=== PATIENT | male | born 1955 | race Caucasian/White ===

== ENCOUNTER 2024-01-10 19:06 | Emergency (ER) | payer MEDICARE, SELFPAY ==
[2024-01-10 19:06] VITALS: BMI 37.6
[2024-01-10 19:09] VITALS: BP 137/85
[2024-01-10 19:24] LABS: % Basophils 0.6 % (0-2); % Eosinophils 1.6 % (0-6); % Immature Granulocytes 0.2 % (0-0.5); % Monocytes 9.6 % (1.7-9.3); Absolute Eosinophils 0.1 10^3/uL (0-0.7); Absolute Monocytes 0.6 10^3/uL (0.1-0.6); Absolute Neutrophils 3.5 10^3/uL (1.4-6.5); Hematocrit 40.1 % (39.0-52.0); Hemoglobin 14.2 g/dL (13.0-18.0); Mean Corp Hgb Conc. 35.4 g/dL (33.0-37.0); Mean Corpuscular Hgb 30.3 pg (27.0-31.0); Mean Corpuscular Volume 85.7 fL (80.0-94.0); Mean Platelet Volume 8.9 fL (7.4-10.4); Nucleated Red Blood Cells % 0 % (-); Platelet Count 242 10^3/uL (130-400); Red Blood Cell Count 4.68 10^6/uL (4.70-6.10); Red Cell Dist. Width 13.6 % (11.5-14.5); White Blood Cell Count 6.3 10^3/uL (4.8-10.8)
[2024-01-10 19:40] LABS: ALT (SGPT) 18 U/L (0-50); AST (SGOT) 24 U/L (17-59); Alkaline Phosphatase 71 U/L (38-126); Blood Urea Nitrogen 12 mg/dl (9-20); Calcium 9.2 mg/dl (8.4-10.2); Carbon Dioxide 25 mmol/L (22-30); Chloride 108 mmol/L (98-107); Glucose 94 mg/dl (70-99); Potassium 4.1 mmol/L (3.5-5.1); Sodium 141 mmol/L (135-145); Total Bilirubin 0.6 mg/dl (0.2-1.3); Total Protein 6.5 g/dl (6.3-8.2); eGFR > 60.00
[2024-01-10 19:50] LABS: Troponin I < 0.012 ng/ml
[2024-01-10 20:57] VITALS: BP 145/99
[2024-01-10 21:00] VITALS: BP 132/102
--- NOTE | 2024-01-10 21:06 | ED.GENMED ---
History of Present Illness
General
Chief Complaint: Chest Pain
Source: patient
Exam Limitations: none
Time Seen by Provider: 01/10/24 20:35
Travel History
Have you had any contact with someone who has COVID-19?: No
Do you have any symptoms of coronavirus? Fever > 100 degrees, chills, cough, shortness of breath, sore throat, loss of taste or smell, muscle aches, or headache?: No
History of Present Illness
History of Present Illness:
This is a 68 year old male that comes in with c/o right sided headache and pain in the left chest. States that he has had this shooting pain that goes from the top of his ear to his eye and then a little in the right forehead. States that he has PT
today for his back. States that he started with pain under the left nipple and he had discomfort with deep breathing. State that he felt he better get this checked out. Denies any fever, chills, SOB, abd pain, nausea, vomiting, diarrhea, dizziness,
urinary burning.
Past History
Past History
ED Past Medical History: Cancer (Glioblastoma brain tumor), HTN, Hypercholesterolemia, NIDDM and Other (CT show a CVA but MRI is negative, Chronic left arm numbness since last May 2023)
ED Past Surgical History: Orthopedic (Left total knee arthroscopy)
Social History
Tobacco: Non-smoker
Alcohol: Occasional
Drug: None
Personal: Single
Living: alone
Family History
Family History: Other (Reviewed and noncontributory)
Review of Systems
Review of Systems
All Other Systems: ROS reviewed and negative except as documented in HPI and ROS
Constitutional: Reports no symptoms; Denies fever or chills
EENT: Reports no symptoms
Respiratory: Reports trouble breathing; Denies cough
Cardiac: Reports chest pain (Left sided chest )
ABD/GI: Reports no symptoms; Denies abdominal pain, nausea, vomiting or diarrhea
: Reports no symptoms; Denies dysuria, frequency or urgency
Musculoskeletal: Reports no symptoms
Skin: Reports no symptoms
Neurological: Reports headache; Denies dizzy
Psychiatric: Reports no symptoms
Phy Exam
General Physical Exam
General Presentation: well appearing and no apparent distress
General age: appears stated age
General Skin: warm and dry
General Habitus: normal
General Mental: alert
General Hydration: appears well hydrated
ENT Exam
ENT Exam: TM's normal, pharynx normal and neck supple
Eye Exam
Eye Exam: EOMI
Cardiovascular Exam
Cardiovascular Exam: regular rate/rhythm, no edema, no murmur and normal peripheral pulses
Pulmonary Exam
Pulmonary Exam: lungs clear, no respiratory distress, no rales, chest non tender, no crackles, no rhonchi, no wheezing and no cough
Gastrointestinal Exam
Gastrointestinal Exam: normal bowel sounds, non tender, soft, no organomegaly, no pulsatile mass and non distended
Musculoskeletal Exam
Musculoskeletal Exam: full ROM, no edema and other (Grimacing with movement of left back pain)
Skin Exam
Skin Exam: normal color, warm/dry, no rash and no petechia
Psychiatric Exam
Psychiatric Exam: normal mood/affect
Scores
Heart Score for Chest Pain Patients
STEMI patient?: No
History: Slightly or Non-Suspicious
ECG: Normal
Age: >/= 65 years
Risk Factors: 1 or 2 Risk Factors
Troponin: </= Normal Limit
Heart Score for Chest Pain Patients: 3
Heart Score Risk: 2.5% MACE over next 6 weeks
Course
Orders/Labs/Results
Orders:
Orders
01/10/24 19:09
Electrocardiogram (*1) Urgent
Reason for Study: Chest Pain
EKG- Treatment ONCE
01/10/24 19:17
Complete Blood Count/With Diff Urgent
Comprehensive Metabolic Panel Urgent
Troponin I Urgent
01/10/24 20:52
CT Head W/o Iv Contrast Urgent
Comment: history of Gleoblastoma, removed
Reason For Exam: Right sided pain,
01/10/24 22:10
D-Dimer Urgent
Troponin I Urgent
01/10/24 22:55
CT Chest Pe Study Urgent
Comment: History of Brain CA
Reason For Exam: pain with deep breathing
Abnormal Lab Results
01/10/24 01/10/24
19:17 22:10
RBC 4.68 L 10^6/uL
(4.70-6.10)
Monocytes % 9.6 H %
(1.7-9.3)
D-Dimer 1.66 H ug/mlFEU
(0.00-0.50)
Chloride 108 H mmol/L
(98-107)
01/10/24 19:17
01/10/24 19:17
Chloride slightly elevated. Otherwise normal labs. Troponin <0.012
Vital Signs
Initial and Last Documented VS:
Initial Vital Signs
Temp Pulse Resp BP Pulse Ox
97.9 F 85 19 137/85 92
01/10/24 19:09 01/10/24 19:09 01/10/24 19:09 01/10/24 19:09 01/10/24 19:09
Last Documented Vital Signs
Temp Pulse Resp BP Pulse Ox
97.9 F 81 17 132/102 96
01/10/24 19:09 01/10/24 23:00 01/10/24 23:00 01/10/24 21:00 01/10/24 23:00
MDM/Problems Addressed
Differential Diagnosis Includes:
Musculoskeletal pain, Coronary syndrome
MDM/Problems Addressed:
This is a 68 year old male that comes in with c/o left sided chest pain under the nipple and a right sided headache.
Will get labs. CT head. D-dimer. If positive will get CT chest.
Back into see patient Reviewed all findings. Patient states that he is ready to go home and is half dressed. Patient to follow up with the family doctor. Return with any concerns.
Chronic conditions affecting care:
Chronic back pain
Chronic conditions affecting care: Cancer (Brain tumor)
Acute Exacerbation and/or Progression of Chronic Illness:
NA
*Radiology
Radiology exam reviewed: radiology read reviewed (ct HEAD NIGHT HAWK- No acute hemorrhage, herniation or hydrocephalus. Evidence of prior right MCA territory infarct, with associated encephalomalacia. NO calvarial fracture. The visualized paranasal
sinuses and mastoid air cells are clear. CTA chest- Moderate technical study, with motion ), all reviewed NAD by ED Provider (Ct cont- degradation. No central pulmonary embolism. No thoracic aortic aneurysm or acute aortic dissection. Bibasilar
atelectasis. Incidentals: Calcified coronary atherosclerosis. No acute osseous abnormality. No acute abnormality with in the visualized abdomen. No Thoracic lymphadenopathy or ) and other (Ct cont- or suspicious lymph nodes)
*Pulse Oximetry
Patient hypoxic: no
*EKG
Interpreted by ED Provider?: Yes
Heart Rate: 88
Rate: normal
Rhythm: sinus
[place]: left axis deviation
Interval: normal interval
QRS Pattern: normal QRS
Ischemia: no ischemia
*High [employer] Interpretation
Rate: normal
Heart Rate: 78
Rhythm: sinus
*Critical Care Note
Total Time (30-74mins, 75-104mins- exclusive of procedures): Not Applicable
ED Attending Note
-
Portions of this chart may have been created with voice recognition software.� Occasional wrong word or��sound alike� substitutions may have occurred due to the inherent limitations of voice recognition software.
Discharge Plan
Departure
Patient Disposition: Home (Routine Discharge)
Date of Disposition: 01/11/24
Time of Disposition: 00:31
Patient with high blood pressure during this ER visit?: Yes
Condition: Good
Covid-19: Not Applicable
Discharge Problem:
Headache, Musculoskeletal chest pain
Instructions: Headache, Adult ED, BLOOD PRESSURE, Musculoskeletal Pain
Prescriptions:
No Action
duloxetine 60 MG capsule,delayed release(DR/EC)
60 mg PO DAILY
losartan [Cozaar] 100 MG tablet
100 mg PO Daily Qty: 0 0RF
metformin 500 mg Tablet Extended Release 24hr
2,000 mg PO HS
levetiracetam 500 mg Tablet
500 mg PO BID
dexamethasone 2 mg Tablet
2 mg PO BID
rosuvastatin [Crestor] 20 mg Tablet
20 mg PO DAILY
quetiapine 50 mg Tablet
50 mg PO HS
Jardiance 25 mg Tablet
25 mg PO DAILY
Referrals:
Sterling Noble MD [Family Provider] - Call in 1-3 days for appt
Activity Restrictions/Additional Instructions:
As discussed, your blood work is normal. Your CT of the head is negative for any ache process and your CT of the chest is negative for Pulmonary embolism. Your both Troponin are normal. This is most likely musculoskeletal pain coming from your back.
You may use Tylenol and Ibuprofen for pain. Rest over the weekend and if you are still having pain on Monday, please hold of on your PT. Follow up with the family doctor for recheck. IF YOU HAVE INCREASED OR CHANGING PAIN, OR YOU HAVE ANY OTHER
CONCERNS PLEASE RETURN TO THE EMERGENCY ROOM.
Interventions
Interventions:
*Risk Screen - Suicide Last Done: 01/10/24 21:04
*General Assessment Last Done: 01/10/24 21:04
*Neglect/Abuse Screening Last Done: 01/10/24 21:04
*ED COVID-19 Vaccine History Last Done: 01/10/24 21:04
ED- Cardiac Assessment Last Done: 01/10/24 21:05
Discharge Date and Time
Print Language: [place]IZ[place]
[2024-01-10 22:41] LABS: Troponin I 0.012 ng/ml
[2024-01-10 22:47] LABS: D-Dimer 1.66 ug/mlFEU (0.00-0.50)
[2024-01-11 00:43] VITALS: BP 149/111
== END 2024-01-11 00:51 | disposition home or self-care (01) ==
LOC: EMR 19:06
PROVIDERS: Clinical Nurse Specialist Family Health; EMERGENCY PHYSICIAN Emergency Medicine; FAMILY PHYSICIAN Surgery
DX: R51.9 Headache, unspecified (principal); R07.89 Other chest pain; I10 Essential (primary) hypertension; E78.00 Pure hypercholesterolemia, unspecified; E11.9 Type 2 diabetes mellitus without complications; G89.29 Other chronic pain; Z86.73 Personal history of transient ischemic attack (TIA), and cerebral infarction without residual deficits
CPT/HCPCS: 99284; 70450; 71275; 80053; 84484; 85025; 85379; 93005; Q9967

== ENCOUNTER → 2024-01-22 12:04 | Outpatient (REF) | payer MEDICARE, SELFPAY | LOC: HWRAD 12:04 | PROVIDERS: ATTENDING PHYSICIAN Internal Medicine Cardiovascular Disease; FAMILY PHYSICIAN Nurse Practitioner Family | DX: R07.89 Other chest pain (principal); R07.81 Pleurodynia | CPT/HCPCS: 71111 ==

== ENCOUNTER → 2024-01-26 07:15 | Outpatient (REF) | payer MEDICARE, SELFPAY | LOC: HWRCS 07:15 | PROVIDERS: ATTENDING PHYSICIAN Internal Medicine Cardiovascular Disease; FAMILY PHYSICIAN Nurse Practitioner Family | DX: I10 Essential (primary) hypertension (principal); R07.89 Other chest pain | CPT/HCPCS: 93306 ==

== ENCOUNTER → 2024-01-29 07:17 | Outpatient (REF) | payer MEDICARE, SELFPAY | LOC: DHCBC/DCA 07:17 | PROVIDERS: ATTENDING PHYSICIAN Internal Medicine Cardiovascular Disease; FAMILY PHYSICIAN Nurse Practitioner Family | DX: I10 Essential (primary) hypertension (principal); R07.89 Other chest pain | CPT/HCPCS: 78452; 93017; A9500; J2785 ==

== ENCOUNTER → 2024-03-05 05:49 | Outpatient (REF) | payer MEDICARE, SELFPAY | LOC: EMG 05:49 | PROVIDERS: ATTENDING PHYSICIAN Physician Assistant Medical | DX: M79.602 Pain in left arm (principal) | CPT/HCPCS: 95886; 95909 ==

== ENCOUNTER 2024-03-31 12:57 | Emergency (ER) | payer MEDICARE, SELFPAY ==
[2024-03-31 13:08] VITALS: BP 163/100
[2024-03-31 13:50] VITALS: BMI 37.3
--- NOTE | 2024-03-31 15:17 | ED.GENMED ---
History of Present Illness
General
Chief Complaint: Fall
Source: patient
Exam Limitations: none
Time Seen by Provider: 03/31/24 13:25
Nursing documentation reviewed up to this point in time: agreed with
History of Present Illness
History of Present Illness:
68-year-old male with past medical history of previous brain tumor presenting to the emergency department today with concerns of left-sided rib discomfort after ground-level fall 2 days ago after tripping over a cord. Has had ongoing discomfort but
improvement over the past 2 days. Denies any significant shortness of breath vomiting cough fevers or abdominal pain. No additional injuries no head trauma. Not on blood thinners.
Past History
Past History
ED Past Medical History: Cancer (Glioblastoma brain tumor), HTN, Hypercholesterolemia, NIDDM and Other (CT show a CVA but MRI is negative, Chronic left arm numbness since last May 2023)
ED Past Surgical History: Orthopedic (Left total knee arthroscopy)
Social History
Tobacco: Non-smoker
Alcohol: Occasional
Drug: None
Personal: Single
Living: alone
Family History
Family History: Other (Reviewed and noncontributory)
Review of Systems
Review of Systems
Allergies reviewed?: Yes
All Other Systems: ROS reviewed and negative except as documented in HPI and ROS
Phy Exam
Physical Exam
Physical Exam:
GENERAL: Alert , in no apparent distress
EYE: pupils equal and reactive
NECK: Supple, no significant adenopathy.
ENT: o/p clr, mmm.
CARDIAC: Regular rate and rhythm .
LUNGS: Left lateral lower rib discomfort to palpation. Clear breath sounds bilaterally, no acute respiratory distress, no wheezes/rales/rhonchi
ABDOMEN: Soft, without focal tenderness, no r/g, no cvat
NEUROLOGICAL: Alert and oriented, no focal neuro deficits
SKIN: Warm and dry, skin intact.
MUSCULOSKELETAL: No edema, well perfused.
PSYCH: Normal and appropriate interaction.
Course
Orders/Labs/Results
Orders:
Orders
03/31/24 13:09
Ribs, Left 3 View W/PA Chest CR [CR Ribs-left 3 Vw W/pa Chest] Urgent
Comment:
Reason For Exam: fall monday night, left rib pain
03/31/24 15:15
Ketorolac [Toradol] 30 mg IM NOW STA
Incentive Spirometry [Rx Incentive Spirometry] [RESP] Urgent
Frequency: q1h while awake
Vital Signs
Initial and Last Documented VS:
Initial Vital Signs
Temp Pulse Resp BP Pulse Ox
97.8 F 109 18 163/100 97
03/31/24 13:08 03/31/24 13:08 03/31/24 13:08 03/31/24 13:08 03/31/24 13:08
Last Documented Vital Signs
Temp Pulse Resp BP Pulse Ox
97.8 F 109 18 163/100 97
03/31/24 13:08 03/31/24 13:08 03/31/24 13:08 03/31/24 13:08 03/31/24 13:08
MDM/Problems Addressed
MDM/Problems Addressed:
68-year-old male presenting to the emergency department today with concerns of left lower rib falling hitting his left lower ribs on the arm of a chair 2 days ago. He has had improving symptoms but still some ongoing discomfort. No cough no
vomiting no chest pain or significant shortness of breath. Mildly tachycardic upon arrival but normal when reassessed on my examination. Normal respiratory rate normal pulse ox chest x-ray and rib series without signs of injury. Patient with
potential rib contusion or small fracture that is difficult to see on x-ray plan for symptomatic treatment otherwise stable for outpatient management. Close outpatient follow-up was recommended return precautions given.
*Critical Care Note
Total Time (30-74mins, 75-104mins- exclusive of procedures): Not Applicable
ED Attending Note
-
Portions of this chart may have been created with voice recognition software.� Occasional wrong word or��sound alike� substitutions may have occurred due to the inherent limitations of voice recognition software.
Discharge Plan
Departure
Patient Disposition: Home (Routine Discharge)
Date of Disposition: 03/31/24
Time of Disposition: 15:20
Patient with high blood pressure during this ER visit?: No
Condition: Good
Covid-19: Not Applicable
Discharge Problem:
Rib injury
Instructions: Rib Fracture or Bruised Rib ED
Prescriptions:
New
lidocaine [Lidocaine Pain Relief] 4 % adhesive patch,medicated
1 patch topical BID PRN (Reason: Pain) Qty: 5 0RF
ibuprofen 600 mg tablet
600 mg PO Q6H PRN (Reason: Pain) Qty: 14 0RF
No Action
duloxetine 60 MG capsule,delayed release(DR/EC)
60 mg PO DAILY
losartan [Cozaar] 100 MG tablet
100 mg PO Daily Qty: 0 0RF
metformin 500 mg Tablet Extended Release 24hr
2,000 mg PO HS
levetiracetam 500 mg Tablet
500 mg PO BID
dexamethasone 2 mg Tablet
2 mg PO BID
rosuvastatin [Crestor] 20 mg Tablet
20 mg PO DAILY
quetiapine 50 mg Tablet
50 mg PO HS
Jardiance 25 mg Tablet
25 mg PO DAILY
Referrals:
Russ Christensen CRNP [Family Provider] -
Activity Restrictions/Additional Instructions:
You came to the emergency department today with concerns of rib discomfort. Here you had an x-ray without signs of complications. Please make sure your pain is controlled and you breathe Godinez to avoid any complications at home. Please use the
incentive spirometer. Please help closely with your primary care doctor within 1 week and return to the emergency department sooner for worsening or progressive symptoms.
Interventions
Interventions:
*Risk Screen - Suicide Last Done: 03/31/24 13:43
*General Assessment Last Done: 03/31/24 13:43
*Neglect/Abuse Screening Last Done: 03/31/24 13:43
ED- Fall Risk Assessment Last Done: 03/31/24 13:47
*ED COVID-19 Vaccine History Last Done: 03/31/24 13:43
ED-Musculoskeletal Assessment Last Done: 03/31/24 13:48
ED- Neurological Assessment Last Done: 03/31/24 13:48
ED-Skin Assessment Last Done: 03/31/24 13:48
Discharge Date and Time
Print Language: BHUTANESE
[2024-03-31] MEDS: TORADOL 30 MG IM (15:46)
== END 2024-03-31 15:57 | disposition home or self-care (01) ==
LOC: EMR 12:57
PROVIDERS: EMERGENCY PHYSICIAN Student in an Organized Health Care Education/Training Program; FAMILY PHYSICIAN Nurse Practitioner Family
DX: S29.9XXA Unspecified injury of thorax, initial encounter (principal); W01.190A Fall on same level from slipping, tripping and stumbling with subsequent striking against furniture, initial encounter
CPT/HCPCS: 99284; 96372; 71101

== ENCOUNTER 2024-10-11 14:24 | Inpatient (IN) | payer MEDICARE, SELFPAY ==
[2024-10-11] VITALS (9 sets, daily range): BP systolic 109–142; BP diastolic 84–99; BMI 35.8
--- NOTE | 2024-10-11 08:04 | ED.CVA ---
History of Present Illness
General
Chief Complaint: CVA/TIA Symptoms
Source: patient
Time Seen by Provider: 10/11/24 07:51
Onset of Stroke Symptoms
Onset of symptoms known: Yes
Date of onset of symptoms: 10/11/24
Time of onset of symptoms: 07:00
History of Present Illness
History of Present Illness:
69-year-old male presents to the emergency room complaining of weakness in his left leg. Patient has a history of a glioblastoma which existed on the right side of his brain. Postoperatively he has had some left arm stiffness and weakness. He
denies any left leg issues from the surgery but today while getting ready to go to the his left leg gave out. He noted that while he was walking his left foot was dragging on the ground. Patient is currently followed at [facility] where his
neurologist or neurosurgeon told him recent imaging suggesting he may be having ischemic events on the right. Patient somewhat vague in the details of this but it sounds like there was some concern for ischemic events and a workup is pending.
Patient denies any headache at this time. He does not take any anticoagulants.
Past History
Past History
ED Past Medical History: Cancer (Glioblastoma brain tumor), HTN, Hypercholesterolemia, NIDDM and Other (CT show a CVA but MRI is negative, Chronic left arm numbness since last May 2023)
ED Past Surgical History: Orthopedic (Left total knee arthroscopy)
Social History
Tobacco: Non-smoker
Alcohol: Occasional
Drug: None
Personal: Single
Living: alone
Family History
Family History: Other (Reviewed and noncontributory)
Phy Exam
Physical Exam
Physical Exam:
General: Awake, Alert, Oriented X3. No acute distress.
Vitals: unremarkable
Head: Atraumatic
Eyes: Pupils equal, EOMI
Throat: Airway intact, no exudates
Neck: Trachea midline
Lungs: Clear and equal b/l
Heart: Regular rate, no murmurs
Abd: Soft, Nontender, No pulsatile mass
Neuro: Cranial nerves intact, left arm has some contracture of the elbow and hand but strength appears intact. Left leg strength is 5/5. Right side has 5/5 strength upper and lower extremities.
Skin: Warm, dry, no rash
Extremities: pulses equal b/l, no edema
Course
Orders/Labs/Results
Orders:
Orders
10/11/24 Breakfast
1800 calorie (15 carb) Diabetic
At Your Request: Full Participation
Diabetic Diet: Cholesterol Lowering
Sodium, 2 Gram
10/11/24 07:50
CT HEAD STROKE ALERT W/o Cont Stat
Comment:
Reason For Exam: L sided weakness
10/11/24 08:02
CT HEAD/NECK ANG STROKE ALERT Urgent
Comment:
Reason For Exam: left leg weakness
10/11/24 08:03
Electrocardiogram (*1) Stat
Reason for Study: Other
Other Reason for Exam: neuro symptoms
NEUROLOGY CONSULT Urgent
Consulting Provider: Ira Pryor
Was physician already notified: Yes
Cardiac Monitoring- Treatment ONCE
EKG- Treatment ONCE
10/11/24 08:29
Complete Blood Count/With Diff Urgent
10/11/24 08:40
EEG Routine Routine
Reason for Exam: L HP, h/o GBM
MR Brain W/o & With Contrast Routine
Comment:
Reason For Exam: GBM
OK for patient to be off Cardiac Monitoring for MRI: No
Recent pill cam endoscopy?: No
10/11/24 09:00
Levetiracetam [Keppra] 250 mg PO BID
Levetiracetam [Keppra] 500 mg PO BID
10/11/24 13:56
Admit/Transfer Patient As Directed
Co-Sign Provider:
Level of Care: Inpatient admission
Assign to:: Telemetry
Physician / Group: Parveen Feliz
Diagnosis: Stroke vs Worsening GBM
Reason for Telemetry: CVA/TIA
Date to Stop Telemetry: 10/14/24
Time to Stop Telemetry: 11:00
Reason for Hospitalization: Stroke vs Worsening GBM
Expected length of stay greater than two midnights?: Yes
ELOS- Estimated Length of Stay in days: 2
I certify the patient meets the requirements for IP care: Yes
PRN Pain Medication Management As Directed
May give lesser potent ordered pain med per pt: Yes
preference::
Protocol:: Medication orders for pain may be administered in a
manner that supports deferring to patient preference
when the pt is:
- Requesting an ordered lesser potent pain medication.
Least to most potent pain medications are defined
as: acetaminophen < NSAID < tramadol < opioids
(morphine, oxycodone, hydromorphone).
- Requesting a lesser dose of the same medication IF
ORDERED.
- Requesting a less intrusive route of administration
if both routes are prescribed by the provider (PO <
IV).
10/11/24 14:00
Code Status As Directed
Resuscitation Status: Full Code
Dexamethasone [Decadron] 4 mg PO DAILY
10/11/24 14:04
Dextrose 50%-Water [Dextrose 50% Syringe] 12.5 grams IV [id number] PRN
Bedside Glucose Monitoring As Directed
Frequency: AC&HS
Additional Instructions:: Change to q6h if pt on TPN, tube feeding or not eating
10/11/24 16:23
Acetaminophen [Tylenol/Feverall] 650 mg RECTAL Q4HPRN PRN
Acetaminophen [Tylenol] 650 mg PO Q4HPRN PRN
Bisacodyl [Dulcolax] 10 mg RECTAL A16PLIN PRN
Docusate W/Senna [Senokot-S] 1 tablet PO BIDPRN PRN
Polyethylene Glycol Powder [Miralax] 17 grams PO DAILYPRN PRN
10/11/24 16:23
Case Management Consult ONCE
Case Management Consult: Discharge Planning
Comment: stroke/tia
DIETARY CONSULT Routine
Reason for Consult: stroke/TIA
Miter Cutter Urgent
Activity As Directed
Activity Level: With Assistance
NIH Stroke Scale As Directed
Directions: Per protocol
Comment: every shift and with any change in condition or mental status
Neurological Checks As Directed
Frequency: q4h
Additional Instructions:: q4h x 24h upon admission to the floor, then qshift & with any change in condition
and mental status
Patient Education As Directed
Type: Stroke education packet
Comment: provide to patient and family
Pneumatic Compression Sleeves As Directed
Type: Knee high
Precautions As Directed
Type of Precautions: Other
Comment: fall precautions
Vital Signs As Directed
Frequency: Per unit guidelines
Ot Eval And Treat Routine
Pt Eval And Treat Routine
Activity Level: With Assistance
Speech Therapy Eval & Treat Routine
DX Deep Vein Thrombosis Video Routine
10/11/24 16:30
Insulin Aspart Corrective Low [Novolog Flexpen-Low Resistance] See Protocol SC AC
10/11/24 18:00
Metformin Extended Release [Glucophage Xr Extended Release] 500 mg PO QPM
10/11/24 20:00
Duloxetine Delayed Release [Cymbalta Delayed Release] 60 mg PO BID
10/11/24 22:00
Gabapentin [Neurontin] 100 mg PO HS
Quetiapine Fumarate [Seroquel] 50 mg PO HS
10/12/24 06:42
Basic Metabolic Panel IN AM
Cardiovascular Evaluation IN AM
Complete Blood Count/No Diff IN AM
Glycohemoglobin (HgbA1c) IN AM
Magnesium IN AM
10/12/24 08:00
Aspirin Chewable [Low Strength Aspirin] 81 mg PO DAILY
Dapagliflozin [Farxiga] 10 mg PO DAILY
Rosuvastatin Calcium [Crestor] 10 mg PO DAILY
10/14/24 11:00
DC Protocol for Telemetry ONCE
10/11/24 08:29
10/11/24 08:43
Vital Signs
Initial and Last Documented VS:
Initial Vital Signs
Temp Pulse Resp BP Pulse Ox
97.6 F 86 16 130/84 98
10/11/24 07:42 10/11/24 07:42 10/11/24 07:42 10/11/24 07:42 10/11/24 07:42
Last Documented Vital Signs
Temp Pulse Resp BP Pulse Ox
98.7 F 80 18 136/76 98
10/13/24 19:45 10/13/24 19:45 10/13/24 19:45 10/13/24 19:45 10/13/24 19:45
MDM/Problems Addressed
Differential Diagnosis Includes:
ischemic cva, sz, tia, bleed,
MDM/Problems Addressed:
Patient presents with episode of left leg weakness and also sensation in his left arm is more numb than what he would expect from his previous globus stoma surgery. Leg symptoms seem to have mostly resolved. CT shows changes from previous
glioblastoma surgery but nothing that appears acute. Patient had a major stroke alert so he was evaluated by neurology. He was not a candidate for TNK because he had improving symptoms and has had previous brain mass and brain surgery. MRI was
ordered by neurology which shows changes concerning for ischemic events versus recurrence of neoplasm. Case discussed with his neuro oncologist at [facility]. They will accept him in transfer however no beds are available at this time. Recommend 4 mg
of Decadron and continue his antiepileptic medications. Patient will be hospitalized here pending a bed becoming available at [facility].
*Radiology
Radiology exam reviewed: radiology read reviewed
*Pulse Oximetry
Patient hypoxic: no
*EKG
Interpreted by ED Provider?: Yes
Heart Rate: 77
Rate: normal
Rhythm: sinus and PVC's
[place]: left axis deviation
Interval: normal interval
QRS Pattern: normal QRS
Ischemia: non-specific ST changes
*Senior [employer] Interpretation
Rate: normal
Interpretation: abnormal
Rhythm: sinus and PVC's
*Critical Care Note
Total Time (30-74mins, 75-104mins- exclusive of procedures): 35 min
ED Attending Note
-
Portions of this chart may have been created with voice recognition software.� Occasional wrong word or��sound alike� substitutions may have occurred due to the inherent limitations of voice recognition software.
Discharge Plan
Departure
Patient Disposition: Admit
Date of Disposition: 10/11/24
Time of Disposition: 09:07
Admit to: Telemetry
Presentation/result/management discussed w/ accepting MD/DO: Hospitalist
Condition: Fair
Discharge Problem:
Acute CVA (cerebrovascular accident)
Interventions
Interventions:
*Risk Screen - Suicide Last Done: 10/11/24 07:42
*General Assessment Last Done: 10/11/24 07:42
*Neglect/Abuse Screening Last Done: 10/11/24 07:42
*ED- Fall Risk Assessment Last Done: 10/11/24 16:13
*ED COVID-19 Vaccine History Last Done: 10/11/24 07:42
*Nursing Disposition Last Done: 10/11/24 16:12
ED- Pulmonary Assessment Last Done: 10/11/24 08:25
ED- Neurological Assessment Last Done: 10/11/24 09:02
ED- Cardiac Assessment Last Done: 10/11/24 08:25
ED Swallowing Screen Last Done: 10/11/24 09:02
Discharge Date and Time
Discharge Date/Time: 10/11/24 16:16
--- NOTE | 2024-10-11 08:13 | CON.NEURO ---
Addendum entered and electronically signed by Ira Pryor MD 10/22/24 08:51:
A/P:
I.Worsening of L hemiparesis. Deferential diagnosis includes: GBM spread vs post ictal vs infarct.
IV. Mild encephalopathy(neoplastic, probably epileptic)
Original Note:
Consultation
Order
Date of Consultation: 10/11/24
Requesting Provider: Maximiliano Felix DO
Reason for Consult: Stroke alert
Called in 7:51 AM
Neurology consultation note.
HPI: This is a 69-year-old right-handed man who presented to [facility] on 10/11/2024 with worsening of left-sided weakness. According to the patient while getting ready to go to a gym for watertherapy exercises this morning, his left
leg 'sort of gave out.' He states this episode 'freaked me out a little bit.' When asked about the last time his left side was normal, the patient reports he hasn't slept normally in about 2 weeks.
The patient also complains of significant elbow pain, stating 'My elbow's killing me' and 'If it wasn't for my elbow, I would have no problem at all.'
Additionally, the patient reports sleep disturbances, stating he went to sleep around 8:30-9:00 PM last night but woke up every hour throughout the night. He is not sure when was the last time his left leg was normal.
ER VS: 130/84, 86, afebrile
EKG: pending
PDMP:none
Labs:pending
CT head wo contrast�no acute abnormalities, hypodensities within the white matter of the right frontal and parietal lobes as well as the right occipital lobe, with volume loss and dilation of the right lateral ventricle, especially involving the
occipital and temporal horns. Atrophy.
CTA head/neck-pending
PMH: GBM, HTN, DLP, DM, MDD, OA
PSH: Right craniotomy, L TKA
SH:nonsmoker
All:NKDA
ROS: Positive for left hemiparesis, left elbow pain, hearing impairment
General: Well developed. In no acute distress.
Cardio: Regular rate and rhythm . Extremities are without cyanosis or edema.
Neuro:
Mental Status: Alert, oriented to self, place.. Comprehension partially due to hearing impairment no aphasia or hemineglect. Follows simple requests consistently.
Cranial Nerves: Pupils are equally round. EOMs full. Visual andres full to confrontation. No ptosis. No nystagmus. V1-V3 intact to light touch and pinprick bilaterally, symmetric. Face symmetric. Impaired hearing AU. The palate elevated
well. SCMs and traps 5/5. Tongue midline. No dysarthria.
Motor: Left pronator and leg drift. Reduced fine finger movements on the left
Sensory: Extension to DSS on the R
Coordination: Dysmetria on the left side in proportion to weakness. No dysmetria on the right
Gait: deferred
Assessment and Plan:
I. Worsening of left hemiparesis. Not a candidate for IV TNK due to known GBM.
II. R parietal GBM, s/p resection/RT?
III. Focal epilepsy
IV. Mild encephalopathy
-Continue Telemetry monitoring
-Aspiration precautions
-Continue Dexamethasone 2 mg BID and Keppra 750 mg PO BID
-ASA 81 mg QD
-Please check HbA1C, LDL.
-Brain MRI w/wo penelope
-Routine EEG
-PT.
-DVT prophylaxis.
I personally reviewed all radiology and labs along with past medical records pertinent to current medical problems. Total time spent in patient care is 60 minutes.
Thank you for allowing us to participate in the care of this patient. We will continue to follow. Please do not hesitate to contact us with any questions or concerns.
Subjective/Objective
Subjective Data
Date of Service: October 11, 2024
Objective Data
Vital Signs
Temp Pulse Resp BP Pulse Ox
36.4 C 86 16 130/84 98
10/11/24 07:42 10/11/24 07:42 10/11/24 07:42 10/11/24 07:42 10/11/24 07:42
Patient Allergies
NKA - No Known Allergies Allergy (Uncoded 10/11/24 07:48)
Unknown
CVA Assessment
NIH Stroke Score
Level of Consciousness: 0 - Alert
LOC Questions: 0-Answers both correctly
LOC Commands: 0-Performs both correctly
Best Horizontal Gaze: 0-Normal
Visual Andres: 0=Normal, no visual loss
Facial Palsy: 0=Normal, symmetrical
Motor - Right Arm: 0=No drift 10 seconds
Motor - Left Arm: 1=Drift < 10 seconds
Motor - Right Le-No drift 5 seconds
Motor - Left Le-Drift < 5 seconds
Limb Ataxia: 1-Present in one limb
Sensation: 1-Mild loss
Best Language: 1-Mild aphasia
Extinction and Inattention: 1-Sensory inattention
Tenecteplase Contraindications
Reasons for NON-Tx with Thrombolytics ABSOLUTE Exclusions: Time-out of window
Medications
-
Home Medications
�Medication �Instructions �Recorded
duloxetine 60 mg capsule,delayed 60 mg PO DAILY 08/26/20
release
losartan 100 mg tablet (Cozaar) 100 mg PO Daily ##0 09/10/20
dexamethasone 2 mg tablet 2 mg PO BID 02/16/23
empagliflozin 25 mg tablet 25 mg PO DAILY 02/16/23
(Jardiance)
levetiracetam 500 mg tablet 500 mg PO BID 02/16/23
metformin 500 mg tablet,extended 2,000 mg PO HS 02/16/23
release 24hr (osmotic)
quetiapine 50 mg tablet 50 mg PO HS 02/16/23
rosuvastatin 20 mg tablet (Crestor) 20 mg PO DAILY 02/16/23
ibuprofen 600 mg tablet 600 mg PO Q6H PRN Pain #14 tabs 03/31/24
lidocaine 4 % topical patch 1 patch topical BID PRN Pain #5 ea 03/31/24
(Lidocaine Pain Relief)
Vital Signs and Labs
-
Vital Signs and Labs:
Vital Signs
Temp Pulse Resp BP Pulse Ox
36.4 C 86 16 130/84 98
10/11/24 07:42 10/11/24 07:42 10/11/24 07:42 10/11/24 07:42 10/11/24 07:42
Home Medications
-
Home Medications
duloxetine 60 mg capsule,delayed release 60 mg PO DAILY 08/26/20
losartan 100 mg tablet (Cozaar) 100 mg PO Daily ##0 09/10/20
dexamethasone 2 mg tablet 2 mg PO BID 02/16/23
empagliflozin 25 mg tablet (Jardiance) 25 mg PO DAILY 02/16/23
levetiracetam 500 mg tablet 500 mg PO BID 02/16/23
metformin 500 mg tablet,extended release 24hr (osmotic) 2,000 mg PO HS 02/16/23
quetiapine 50 mg tablet 50 mg PO HS 02/16/23
rosuvastatin 20 mg tablet (Crestor) 20 mg PO DAILY 02/16/23
ibuprofen 600 mg tablet 600 mg PO Q6H PRN Pain #14 tabs 03/31/24
lidocaine 4 % topical patch (Lidocaine Pain Relief) 1 patch topical BID PRN Pain #5 ea 03/31/24
[2024-10-11 08:49] LABS: % Basophils 0.5 % (0-2); % Eosinophils 1.9 % (0-6); % Immature Granulocytes 0.2 % (0-0.5); % Lymphocytes 24.2 % (20.5-51.1); % Monocytes 7.4 % (1.7-9.3); % Neutrophils 65.8 % (42.2-75.2); Absolute Eosinophils 0.1 10^3/uL (0-0.7); Absolute Lymphocytes 1.4 10^3/uL (1.2-3.4); Absolute Monocytes 0.4 10^3/uL (0.1-0.6); Absolute Neutrophils 3.8 10^3/uL (1.4-6.5); Hematocrit 43.9 % (39.0-52.0); Hemoglobin 15.2 g/dL (13.0-18.0); Mean Corp Hgb Conc. 34.6 g/dL (33.0-37.0); Mean Corpuscular Hgb 29.5 pg (27.0-31.0); Mean Corpuscular Volume 85.2 fL (80.0-94.0); Nucleated Red Blood Cells % 0 % (-); Red Blood Cell Count 5.15 10^6/uL (4.70-6.10); White Blood Cell Count 5.8 10^3/uL (4.8-10.8)
--- NOTE | 2024-10-11 09:14 | HPS.HSE ---
Family Physician
-
Family Physician: OLGA Campa
Chief Complaint
-
Worsening Left sided weakness
History of Present Illness
69M Obesity (BMI>30) Hx rt sided GBM s/p surgical resection years ago, follows with [facility], HTN, HLD, NIDDM, Neuropathy, sz d/o p/w worsening left sided weakness. Since craniotomy for GBM, patient reports that he has had chronic
left upper ext weakness, stiffness, and pain (especially around elbow). Left upper ext symptoms had been worsening for the past weeks. Patient was prompted to visit ED when he developed left lower extremity weakness while getting ready to go to
gym for water therapy. Symptom since improved. VSS, stable respiratory status on room air. CT and CTA head/neck noted no acute abn's. Brain MRI concerning for acute-subacute infarcts vs neoplastic spread/involvement. Case was discussed with
neuro and transfer back to [facility] for further oncology neurosurgery evaluation/treatment was recommended. Patient agreeable to transfer. Dr Jarad Ko, patient's neurosurgeon, accepted for transfer however no beds available at this time. Patient
admitted pending bed availability [facility].
Medical History
Past Medical History
Past Medical History: Reports Other (as above)
Past Surgical History: Reports Other (as above)
Social History
Tobacco: Non-smoker
Alcohol: None
Drug: None
Personal: Single
Living: Alone
Family History
Family History: Not pertinent (reviewed)
Allergies / Home Medications
Allergies reflects when Allergies were last updated in [employer].
Home Medications with original date entered in [employer]
Allergy/Medication List:
Allergies
Allergy/AdvReac Type Severity Reaction Status Date / Time
No Known Allergies Allergy Unverified 10/11/24 08:51
Home Medications
duloxetine 60 mg capsule,delayed release 60 mg PO BID 08/26/20
losartan 100 mg tablet (Cozaar) 100 mg PO Daily ##0 09/10/20
empagliflozin 25 mg tablet (Jardiance) 25 mg PO DAILY 02/16/23
metformin 500 mg tablet,extended release 24hr (osmotic) 500 mg PO QPM 02/16/23
quetiapine 50 mg tablet 50 mg PO HS 02/16/23
acetaminophen 325 mg tablet (Tylenol) 650 mg PO Q6H PRN Pain 10/11/24
aspirin 81 mg chewable tablet 81 mg PO DAILY 10/11/24
gabapentin 100 mg capsule 100 mg PO HS 10/11/24
levetiracetam 750 mg tablet (Keppra) 750 mg PO BID 10/11/24
rosuvastatin 10 mg tablet (Crestor) 10 mg PO DAILY 10/11/24
Review of Systems
-
A 12 point ROS was completed and negative except as noted: Yes
Constitutional: Reports Other (as below)
Physical Exam
Vital Signs
Vital Signs
Temp Pulse Resp BP Pulse Ox
97.6 F 74 24 131/99 97
10/11/24 07:42 10/11/24 08:45 10/11/24 08:45 10/11/24 08:22 10/11/24 08:30
Physical Exam
General: Other (as below)
Laboratory Results
-
10/11/24 08:29
Laboratory Results
Total Bilirubin Cancelled 10/11/24 08:29
AST Cancelled 10/11/24 08:29
ALT Cancelled 10/11/24 08:29
Alkaline Phosphatase Cancelled 10/11/24 08:29
Impression/Plan
-
ROS
General: Denies fever night sweats unexpected weight loss
Neuro: Denies seizure shaking loss of consciousness dizziness vertigo
Psych: denies depression hallucinations confusion manic episodes
Endocrine: Denies polyuria polydipsia polyphagia heat/cold intolerance
HEENT: Denies blindness visual disturbances epistaxis
Pulmonary: denies coughing hemoptysis sneezing sob dyspnea on exertion
Cardiovascular: denies chest pain palpitations leg swelling
Hematology: denies signs symptoms of anemia easy bruising/bleeding
Gastrointestinal: denies nausea vomiting diarrhea constipation hematemesis hematochezia melena
Genito-Urinary: denies retention incontinence dysuria
Musculoskeletal: reports left upper ext pain stiffness weakness, pain especially left elbow.
Dermatology: denies rash laceration bruising
Physical Exam
General: No pallor, cyanosis, or jaundice.
HEENT: Throat clear. PERRLA Normocephalic atraumatic hard of hearing
NECK: Supple. No JVD Carotid Bruits
RESPIRATORY: Lungs clear to auscultation. No crackles wheezes stridor
CVS: S1, S2 normal. RRR. No murmur, rub or gallop.
ABDOMEN: Soft, non-tender. No distension. BS+/normal.
EXTREMITIES: No peripheral cyanosis or edema. Left upper ext stiff, some contracture noted at elbow, strength 5/5 all ext's
Neuro: AOx3 conversant coherent
Psych: Calm
IMPRESSION:
69M Obesity (BMI>30) Hx rt sided GBM s/p surgical resection years ago, follows with [facility], HTN, HLD, NIDDM, Neuropathy, sz d/o p/w worsening left sided weakness. Since craniotomy for GBM, patient reports that he has had chronic
left upper ext weakness, stiffness, and pain (especially around elbow). Left upper ext symptoms had been worsening for the past weeks. Patient was prompted to visit ED when he developed left lower extremity weakness while getting ready to go to
gym for water therapy. Symptom since improved. VSS, stable respiratory status on room air. CT and CTA head/neck noted no acute abn's. Brain MRI concerning for acute-subacute infarcts vs neoplastic spread/involvement. Case was discussed with
neuro and transfer back to [facility] for further oncology neurosurgery evaluation/treatment was recommended. Patient agreeable to transfer. Dr Jarad Ko, patient's neurosurgeon, accepted for transfer however no beds available at this time. Patient
admitted pending bed availability [facility].
PLAN:
#CVA vs worsening/spread right GBM vs Focal Epilepsy
#hx Craniotomy Rt GBM resection
#Sz d/o
#Neuropathy
Tele Admit
Neuro eval appreciated
4mg decadron daily started as per ED's discussion with Dr Jarad Ko (patient's neurosurgeon at [facility] and accepting physician for transfer)
CT CTA head neck, MRI brain results appreciated
suspected lacunar infarcts due to radiation induced vascular changes as per patient's neurosurgeon.
Follow up EEG
cont home Keppra 75 mg BID
cont home Gabapentin
permissive HTN 24 hr
Hydralazine prn SBP>220 or DBP>120
ST/PT/OT eval
accepted for transfer to [facility] for oncology neurosurgery evaluation/treatment, Dr Jarad Ko patient's neurosurgeon accepting, transfer when bed available
Follow up A1c lipid panel
cont home ASA statin
#HTN
home losartan on hold for permissive htn as above
hydralazine prn as above
#HLD
cont home statin
#DM
cont home Jardiance Metformin
carb controlled diet
Low dose sliding scale, monitor and titrate insulin regimen as necessary
follow up A1c as above
dvt ppx SCD
Full Code
Discussed with patient, patient's daughter Helena, and patient's brother Pat
I spent a total of 80 minutes with the patient or on the floor. More than 50% of this time involved counseling and coordination of care.
--- NOTE | 2024-10-11 11:59 | W.PN.UPDATE ---
Update Note
Progress Note Update
MRI results concerning for acute/subacute stroke vs neoplastic spread/involvement.
Results discussed with Neuro, patient recommended for transfer back to [facility] for further neuro/neurosx evaluation treatment.
Recommendation discussed with ED attending and patient, patient in agreement with pursuing transfer.
[2024-10-11] MEDS: LIDOCAINE 4% PATCH 1 PATCH TOPICAL (15:39)
[2024-10-11] MEDS: DECADRON 4 MG PO (15:40)
--- NOTE | 2024-10-11 16:05 | EEG.RPT ---
Electroencephalogram Report
Recording
Date of EE10/11/24
Type of EEG: Routine
Length of EEG recordin minutes
Done with Video Recording: Yes
Patient Status: Inpatient
Recording Conditions: Awake and Drowsy
Hyperventilation Performed: No
Photic Stimulation Performed: Yes
Report
LESS THAN 1 HOUR EEG REPORT
LESS THAN 1 HOUR EEG INTERPRETATION:
Likely unremarkable EEG for age with evidence of a breach artifact in the right temporal region
CLINICAL CORRELATION:
The presence of a breach artifact was suggestive of a prior right-sided craniotomy.
If clinical suspicion for seizure persists, a prolonged recording may be warranted.
Clinical correlation is advised.
METHODS:
A 21 channel digitized electroencephalogram (EEG) was performed using the 10/20 international system of electrode placement and one-lead of ECG recorded. [employer] quantitative EEG analysis was utilized.
ELECTROENCEPHALOGRAPHER IMPRESSION(S):
Quality of study
Good
Background
There was an unremarkable anterior-posterior voltage gradient of theta frequency from the right hemisphere and lower amplitude delta from the contralateral side.
With eye opening the background activity changed to a low voltage mixture of frequencies.
There were no significant asymmetries of background activity noted.
There was near continuous, variable amplitude theta frequency, right temporal (T4 maximal) electrical activity.
Sleep
Drowsiness present
Photic Stimulation
No driving
ECG
Normal sinus rhythm
[2024-10-11 16:48] LABS: Glucose - Point of Care 116 mg/dl (70-99)
--- NOTE | 2024-10-11 16:52 | PTCARENOTE ---
Received pt from ED via stretcher. Pt ambulated to bed with assist x1. Brother at bedside. driver's license examiner paced. Assessed and oriented to room, forgetful. Will continue to monitor.
[2024-10-11] MEDS: NOVOLOG FLEXPEN-LOW RESISTANCE SC (17:11)
[2024-10-11] MEDS: GLUCOPHAGE XR EXTENDED RELEASE 500 MG PO (17:36)
[2024-10-11] MEDS: TYLENOL 650 MG PO (17:52)
[2024-10-11] MEDS: KEPPRA 750 MG PO (19:50)
[2024-10-11] MEDS: CYMBALTA DELAYED RELEASE 60 MG PO (19:50)
[2024-10-11] MEDS: NEURONTIN 100 MG PO (20:18)
[2024-10-11] MEDS: SEROQUEL 50 MG PO (20:18)
[2024-10-11 21:37] LABS: Glucose - Point of Care 181 mg/dl (70-99)
[2024-10-12] VITALS (8 sets, daily range): BP systolic 121–139; BP diastolic 67–92; O2SAT 97; BMI 35.4
--- NOTE | 2024-10-12 06:25 | PTCARENOTE ---
Pt slept through shift with no s/s of distress assessed. NIH remains 3 due to hx of GBM removal. Pt denies pain and SOB. Will continue to monitor.
--- NOTE | 2024-10-12 07:04 | W.PN.HOSP.TC ---
Today's Communication/Plan
-
transfer to [facility] when bed available
ok to stop steroids for now, as per patient's Neuro Oncologist Dr Ko
cont Keppra
Cozaar resumed reduce dose, hydralazine prn
monitor BP, cont telemetry
Blood pressure glycemic control
Assessment / Plan
Assessment / Plan
Physical Exam
General: No pallor, cyanosis, or jaundice.
HEENT: Throat clear. PERRLA Normocephalic atraumatic hard of hearing
NECK: Supple. No JVD Carotid Bruits
RESPIRATORY: Lungs clear to auscultation. No crackles wheezes stridor
CVS: S1, S2 normal. RRR. No murmur, rub or gallop.
ABDOMEN: Soft, non-tender. No distension. BS+/normal.
EXTREMITIES: No peripheral cyanosis or edema. Left upper ext stiff, some contracture noted at elbow, strength 5/5 all ext's
Neuro: AOx3 conversant coherent
Psych: Calm earlier in the morning, became irritable/agitated later in day, eventually calmed down after discussing with his neuro oncologist Dr Ko over the phone.
IMPRESSION:
69M Obesity (BMI>30) Hx rt sided GBM s/p surgical resection years ago, follows with [facility], HTN, HLD, NIDDM, Neuropathy, sz d/o p/w worsening left sided weakness. Since craniotomy for GBM, patient reports that he has had chronic
left upper ext weakness, stiffness, and pain (especially around elbow). Left upper ext symptoms had been worsening for the past weeks. Patient was prompted to visit ED when he developed left lower extremity weakness while getting ready to go to
gym for water therapy. Symptom since improved. VSS, stable respiratory status on room air. CT and CTA head/neck noted no acute abn's. Brain MRI concerning for acute-subacute infarcts vs neoplastic spread/involvement. Case was discussed with
neuro and transfer back to [facility] for further oncology neurosurgery evaluation/treatment was recommended. Patient agreeable to transfer. Dr Jarad Ko, patient's neurosurgeon, accepted for transfer however no beds available at this time. Patient
admitted pending bed availability [facility].
PLAN:
#CVA vs worsening/spread right GBM vs Focal Epilepsy
#hx Craniotomy Rt GBM resection
#Sz d/o
#Neuropathy
Tele Admit
Neuro eval appreciated
4mg decadron daily started as per ED's discussion with Dr Jarad Ko (patient's neuro oncologist at [facility] and accepting physician for transfer)
-patient however refusing due to irritability mood issues caused by steroid, Dr Ko discussed with patient over speaker phone and cleared him to stop steroids for now.
CT CTA head neck, MRI brain results appreciated
suspected lacunar infarcts due to radiation induced vascular changes as per patient's neurosurgeon.
EEG appreciated
cont home Keppra 75 mg BID
cont home Gabapentin
completed permissive HTN 24 hr
ST/PT/OT eval appreciated no needs
accepted for transfer to [facility] for oncology neurosurgery evaluation/treatment, Dr Jarad Ko patient's neurosurgeon accepting, transfer when bed available
cont home ASA, home rosuvastatin switched to atorvastatin
#HTN
home losartan held for permissive HTN, since resumed reduced dose 25 mg daily
given bp trend and response to reduced dose, patient does not appear to need home dose 100 mg daily at this time
hydralazine prn SBP >140 or DBP>100
#HLD
elevated cholesterol, triglycerides, LDL>70
home statin switched to Atorvastatin as above
Cholesterol lowering diet
#hx DM
#Hyperglycemia
cont home Jardiance Metformin
carb controlled diet
Low dose sliding scale, monitor and titrate insulin regimen as necessary
Updated A1c 5.5, seems too good to be true though
dvt ppx SCD
Full Code
I spent a total of 50 minutes with the patient or on the floor. More than 50% of this time involved counseling and coordination of care.
Anticipated Discharge: 24 - 48 hours
Subjective/Interval History
-
Date of Service: October 12, 2024
Reports feeling well, back to baseline, left leg weakness completely resolved. Slept well last night for the first time in weeks. Patient later in the day was agitated yelling at staff angry that he was on dexamethasone (despite earlier
discussions regarding the need for it and his earlier willingness to comply with recommendations). Threatening to leave [place], patient eventually calmed down after speaking to his neuro oncologist Dr Emma Ko (accepting physician [facility] transfer).
Refuses to take further dexamethasone which he attributes to his irritability.
Objective Data
-
Labs:
Laboratory Results
10/12/24
06:42
WBC Pending
Hgb Pending
Hct Pending
Plt Count Pending
Sodium Pending
Potassium Pending
Chloride Pending
Carbon Dioxide Pending
BUN Pending
Creatinine Pending
Glucose Pending
Calcium Pending
Vital Signs:
Vital Signs
Temp Pulse Resp BP Pulse Ox
98.1 F 80 18 139/92 98
10/12/24 03:00 10/12/24 03:00 10/12/24 03:00 10/12/24 03:00 10/12/24 03:00
I&O
10/11/24 10/12/24 10/13/24
06:59 06:59 07:59
Intake Total 720 / 720
Balance 720 / 720
[2024-10-12 07:38] LABS: Hematocrit 40.5 % (39.0-52.0); Hemoglobin 14.5 g/dL (13.0-18.0); Mean Corp Hgb Conc. 35.8 g/dL (33.0-37.0); Mean Corpuscular Hgb 29.8 pg (27.0-31.0); Mean Corpuscular Volume 83.2 fL (80.0-94.0); Mean Platelet Volume 10.3 fL (7.4-10.4); Platelet Count 212 10^3/uL (130-400); Red Blood Cell Count 4.87 10^6/uL (4.70-6.10); Red Cell Dist. Width 12.8 % (11.5-14.5); White Blood Cell Count 5.2 10^3/uL (4.8-10.8)
--- NOTE | 2024-10-12 07:43 | W.PN.NEURO.1 ---
Today's Communication / Plan
-
.
Subjective/Objective
Subjective Data
Date of Service: October 12, 2024
Neurology follow-up note
Mr. Waldrop reports that yesterday, his left leg suddenly became weak and numb, and he was unable to lift his foot to walk. No reports of abnormal movements, radicular back pain, change in sphincter function, change in speech no confusion. The
patient drove himself to the hospital. While walking from the parking lot to the main entrance, he experienced a recurrence of leg weakness and numbness, which subsided upon reaching the emergency room.
He reports persistent left-sided numbness and weakness since his GBM resection 2 years ago. The patient describes his left side as 'lazy' and experiences tingling and numbness in his left hand and intermittent symptoms in the left leg.
Mr. Waldrop reports to be compliant with Keppra and has been using dexamethasone intermittently, about one or two days per week, due hyperglycemia and change in mood side effects.
The patient drove himself to the hospital. While walking from the parking lot to the main entrance, he experienced a recurrence of leg weakness and numbness, which subsided upon reaching the emergency room. Currently, he reports a cold sensation in
two of his toes.
Routine EEG (10/11/2024) continues right hemispheric slowing, no epileptiform abnormality
Brain MRI w/wo penelope(10/11/2024) mild nodular abnormal enhancement at the anterior posterior margins of the surgical bed. Postsurgical granulation tissue versus neoplasm.
Abnormal signal intensity and enhancement within periventricular white matter of the posterior body of the right lateral ventricle and temporal horn acute-subacute infarcts vs neoplastic.
CTA head and neck�no hemodynamically significant stenosis.
LDL�171, hemoglobin A1c�5.5.
PMH: GBM, HTN, DLP, DM, MDD, OA
PSH: Right craniotomy, L TKA
SH:nonsmoker
All:NKDA
ROS: Positive for transient worsening of left leg weakness, left elbow pain, hearing impairment, left elbow pain
General: Well developed. In no acute distress.
Cardio: Regular rate and rhythm . Extremities are without cyanosis or edema.
Neuro:
Mental Status: Alert, oriented to self, place. Impaired attention and comprehension partially due to hearing impairment. Follows simple requests consistently. No hemineglect
Cranial Nerves: Pupils are equally round. EOMs full. Visual alexander full to confrontation. No ptosis. No nystagmus. V1-V3 intact to light touch and pinprick bilaterally, symmetric. Face symmetric. Impaired hearing AU. The palate elevated
well. SCMs and traps 5/5. Tongue midline. No dysarthria.
Motor: Left pronator drift. Left leg�full strength.. Reduced fine finger movements on the left
Sensory: Nonreproducible exam
Coordination: Dysmetria on the left side in proportion to weakness. No dysmetria on the right
Gait: deferred
Assessment and Plan:
I. Probable focal motor seizure less likely stuttering TIA.
II. Acute-subacute right temporal infarct versus neoplasm
III. Right parietal GBM
IV. Mild encephalopathy
V. Hyperlipidemia, controlled
-Continue Telemetry monitoring
-Aspiration precautions
-Continue Dexamethasone 2 mg BID and Keppra 750 mg PO BID
-Please obtain medical records from [facility]
-ASA 81 mg QD, Lipitor 40 mg nightly
-Please check HbA1C, LDL.
-TTE if not done at [facility]
-PT.
-DVT prophylaxis.
I personally reviewed all radiology and labs along with past medical records pertinent to current medical problems. Total time spent in patient care is 60 minutes.
Thank you for allowing us to participate in the care of this patient. We will continue to follow. Please do not hesitate to contact us with any questions or concerns.
Objective Data
Vital Signs
Temp Pulse Resp BP Pulse Ox
36.4 C 77 17 134/70 96
10/12/24 07:41 10/12/24 07:41 10/12/24 07:41 10/12/24 07:41 10/12/24 07:41
Lab Results
10/12/24 06:42
Sodium Cancelled 10/11/24 08:43
Potassium Cancelled 10/11/24 08:43
BUN Cancelled 10/11/24 08:43
Glucose Cancelled 10/11/24 08:43
Calcium Cancelled 10/11/24 08:43
Patient Allergies
No Known Allergies Allergy (Unverified 10/11/24 08:51)
Vital Signs and Labs
-
Vital Signs and Labs:
Vital Signs
Temp Pulse Resp BP Pulse Ox
36.4 C 93 18 129/84 98
10/12/24 07:41 10/12/24 11:25 10/12/24 11:25 10/12/24 11:25 10/12/24 11:25
Lab Results
10/12/24 06:42
10/12/24 06:42
Sodium 137 mmol/L (135-145) 10/12/24 06:42
Potassium 4.4 mmol/L (3.5-5.1) 10/12/24 06:42
BUN 12 mg/dl (9-20) 10/12/24 06:42
Glucose 151 mg/dl (70-99) H 10/12/24 06:42
Calcium 9.3 mg/dl (8.4-10.2) 10/12/24 06:42
LDL Cholesterol, Calc 171 mg/dl 10/12/24 06:42
Medications
-
Medications:
Generic Name Dose Route Start Last Admin
Trade Name Freq PRN Reason Stop Dose Admin
Acetaminophen 650 mg 10/11/24 16:23
Acetaminophen 650 Mg Rectal Suppository RECTAL 11/08/24 16:22
Q4HPRN PRN
REDD, mild pain, or temp >100.4F
Acetaminophen 650 mg 10/11/24 16:23 10/12/24 08:39
Acetaminophen 325 Mg Tablet PO 11/08/24 16:22 650 mg
Q4HPRN PRN Administration
REDD, mild pain, or temp >100.4F
Aspirin 81 mg 10/12/24 08:00 10/12/24 08:39
Aspirin 81 Mg Chewable Tablet PO 11/09/24 07:59 81 mg
DAILY LIZ Administration
Atorvastatin Calcium 40 mg 10/12/24 18:00
Atorvastatin (Lipitor) 20 Mg Tablet PO 11/09/24 17:59
QPM LIZ
Bisacodyl 10 mg 10/11/24 16:23
Bisacodyl 10 Mg Rectal Suppository RECTAL 11/08/24 16:22
[id number] PRN
constipation
Dapagliflozin 10 mg 10/12/24 08:00 10/12/24 08:39
Dapagliflozin (Farxiga) 10 Mg Tablet PO 11/09/24 07:59 10 mg
DAILY LIZ Administration
Dexamethasone 4 mg 10/11/24 14:00 10/12/24 08:39
Dexamethasone 4 Mg Tablet PO 11/08/24 13:59 4 mg
DAILY LIZ Administration
Dextrose 12.5 grams 10/11/24 14:04
Dextrose 50% (0.5 Grams/Ml) 50 Ml Syringe IV 11/08/24 14:03
[id number] PRN
hypoglycemia
Protocol
Duloxetine HCl 60 mg 10/11/24 20:00 10/12/24 08:39
Duloxetine Delayed Release 60 Mg Capsule PO 11/08/24 19:59 60 mg
BID LIZ Administration
Gabapentin 100 mg 10/11/24 22:00 10/11/24 20:18
Gabapentin 100 Mg Capsule PO 11/08/24 21:59 100 mg
HS LIZ Administration
Hydralazine HCl 5 mg 10/12/24 09:17
Hydralazine 20 Mg/Ml Vial IV 11/08/24 14:37
Q4HPRN PRN
SBP>140 or DBP>100
Insulin Aspart 0 units 10/11/24 16:30 10/12/24 08:34
Insulin Aspart Low Resistance 300 Units/3 Ml Pen.Injctr SC 11/08/24 16:29 Not Given
AC LIZ
Protocol
Levetiracetam 750 mg 10/11/24 20:00 10/12/24 08:39
Levetiracetam 250 Mg Regular Release Tablet PO 11/08/24 19:59 750 mg
BID LIZ Administration
Lidocaine 1 patch 10/11/24 14:30 10/12/24 08:39
Lidocaine 4% Topical Patch TOPICAL 11/08/24 14:29 1 patch
DAILY LIZ Administration
Protocol
Losartan Potassium 25 mg 10/12/24 10:00 10/12/24 10:07
Losartan 25 Mg Tablet PO 11/09/24 09:59 25 mg
DAILY LIZ Administration
Metformin HCl 500 mg 10/11/24 18:00 10/11/24 17:36
Metformin 500 Mg Extended Release Tablet PO 11/08/24 17:59 500 mg
QPM LIZ Administration
Patch Removal 0 patch 10/12/24 20:00
Remove Lidocaine Patch REMOVE 11/09/24 19:59
DAILY@2000 LIZ
Polyethylene Glycol 17 grams 10/11/24 16:23
Polyethylene Glycol Powder 17 Grams Packet PO 11/08/24 16:22
DAILYPRN PRN
constipation
Quetiapine Fumarate 50 mg 10/11/24 22:00 10/11/24 20:18
Quetiapine 25 Mg Tablet PO 11/08/24 21:59 50 mg
HS LIZ Administration
Senna/Docusate Sodium 1 tablet 10/11/24 16:23
Docusate W/Senna (Aaliyah-Colace) Tablet PO 11/08/24 16:22
BIDPRN PRN
constipation
Sodium Chloride 0 flush 10/11/24 15:00
Sodium Chloride 0.9% (Flush) Syringe IV 11/08/24 14:59
PER PROTOCOL LIZ
Home Medications
-
Home Medications
duloxetine 60 mg capsule,delayed release 60 mg PO BID 08/26/20
losartan 100 mg tablet (Cozaar) 100 mg PO Daily ##0 09/10/20
empagliflozin 25 mg tablet (Jardiance) 25 mg PO DAILY 02/16/23
metformin 500 mg tablet,extended release 24hr (osmotic) 500 mg PO QPM 02/16/23
quetiapine 50 mg tablet 50 mg PO HS 02/16/23
acetaminophen 325 mg tablet (Tylenol) 650 mg PO Q6H PRN Pain 10/11/24
aspirin 81 mg chewable tablet 81 mg PO DAILY 10/11/24
gabapentin 100 mg capsule 100 mg PO HS 10/11/24
levetiracetam 750 mg tablet (Keppra) 750 mg PO BID 10/11/24
rosuvastatin 10 mg tablet (Crestor) 10 mg PO DAILY 10/11/24
[2024-10-12 07:52] LABS: Glucose - Point of Care 139 mg/dl (70-99)
[2024-10-12 07:52] LABS: Blood Urea Nitrogen 12 mg/dl (9-20); Calcium 9.3 mg/dl (8.4-10.2); Carbon Dioxide 24 mmol/L (22-30); Chloride 102 mmol/L (98-107); Estimated Creatinine Clearance 121 ml/min; Glucose 151 mg/dl (70-99); HDL Cholesterol 40 mg/dl; LDL Cholesterol, Calculated 171 mg/dl; Magnesium 1.7 mg/dl (1.6-2.3); Potassium 4.4 mmol/L (3.5-5.1); Sodium 137 mmol/L (135-145); Total Cholesterol 242 mg/dl (50-199); Triglyceride 155 mg/dl (10-149); Very Low Density Lipoprotein 31 mg/dl (0-30); eGFR > 60.00
[2024-10-12] MEDS: NOVOLOG FLEXPEN-LOW RESISTANCE SC (08:34)
[2024-10-12] MEDS: LOW STRENGTH ASPIRIN 81 MG PO (08:39)
[2024-10-12] MEDS: DECADRON 4 MG PO (08:39)
[2024-10-12] MEDS: TYLENOL 650 MG PO ×2 (08:39→17:20)
[2024-10-12] MEDS: CYMBALTA DELAYED RELEASE 60 MG PO ×2 (08:39→20:03)
[2024-10-12] MEDS: FARXIGA 10 MG PO (08:39)
[2024-10-12] MEDS: KEPPRA 750 MG PO ×2 (08:39→20:04)
[2024-10-12] MEDS: LIDOCAINE 4% PATCH 1 PATCH TOPICAL (08:39)
[2024-10-12] MEDS: CRESTOR 10 MG PO (08:39)
[2024-10-12 09:56] LABS: Glycohemoglobin (HgbA1c) 5.5 % (4.0-5.6)
[2024-10-12] MEDS: COZAAR 25 MG PO (10:07)
--- NOTE | 2024-10-12 10:35 | PTOTSP ---
Speech Therapy
Patient's speech and language appeared to be WNL during conversation with FRUIT CULLER. Patient denied any communicative deficits. Noted possibly impaired pragmatic abilities vs baseline pragmatic functioning.
Swallowing Function: Patient was observed with several bites of regular consistency solids and sips of thin liquids in which patient appeared to tolerate as he did not exhibit any overt clinical s/sx of aspiration or difficulty with mastication/
manipulation. Patient denied any dysphagia complaints.
Recommendations:
1) Continuation of regular consistency solids and thin liquids
2) Standard aspiration precautions
3) Medications as tolerated
4) Consideration of cognitive assessment
Plan: FRUIT CULLER will continue to follow x1 to ensure tolerance of diet and r/o cognitive deficits; pending hospitalization.
--- NOTE | 2024-10-12 11:16 | PTOTSP ---
pt currently requires supervision to no assistance to complete simple ADLs, functional transfers, ambulation. pt does demonstrates decreased ROM and strength of LUE, may be baseline. encouraged pt to use UE as able. no acute OT needs identified at
this time, will sign off.
[2024-10-12 11:39] LABS: Glucose - Point of Care 153 mg/dl (70-99)
[2024-10-12] MEDS: NOVOLOG FLEXPEN-LOW RESISTANCE 1 UNITS SC (13:08)
--- NOTE | 2024-10-12 16:00 | PTCARENOTE ---
Pt increasingly agitated, informed this RN, 'I need to go to [facility] today and I need to speak to the doctor'. MD made aware, MD at bedside.
[2024-10-12 16:30] LABS: Glucose - Point of Care 209 mg/dl (70-99)
[2024-10-12] MEDS: NOVOLOG FLEXPEN-LOW RESISTANCE 2 UNITS SC (17:20)
[2024-10-12] MEDS: LIPITOR 40 MG PO (17:21)
[2024-10-12] MEDS: GLUCOPHAGE XR EXTENDED RELEASE 500 MG PO (17:21)
[2024-10-12] MEDS: NEURONTIN 100 MG PO (20:03)
[2024-10-12] MEDS: SEROQUEL 50 MG PO (20:03)
[2024-10-12 21:29] LABS: ALT (SGPT) 18 U/L (0-50); AST (SGOT) 20 U/L (17-59); Albumin 3.7 g/dl (3.5-5.0); Alkaline Phosphatase 72 U/L (38-126); Direct Bilirubin 0.2 mg/dl (0.0-0.4); Total Bilirubin 0.7 mg/dl (0.2-1.3)
[2024-10-12 21:49] LABS: Glucose - Point of Care 130 mg/dl (70-99)
[2024-10-13 03:00] VITALS: BP 119/67
[2024-10-13 05:31] VITALS: BMI 35.5
[2024-10-13 07:03] LABS: Glucose - Point of Care 106 mg/dl (70-99)
[2024-10-13 07:10] VITALS: BP 120/71
--- NOTE | 2024-10-13 07:10 | W.PN.HOSP.TC ---
Today's Communication/Plan
-
transfer to [facility] when bed available
cont telemetry
Blood pressure glycemic control
Assessment / Plan
Assessment / Plan
Physical Exam
General: No pallor, cyanosis, or jaundice.
HEENT: Throat clear. PERRLA Normocephalic atraumatic hard of hearing
NECK: Supple. No JVD Carotid Bruits
RESPIRATORY: Lungs clear to auscultation. No crackles wheezes stridor
CVS: S1, S2 normal. RRR. No murmur, rub or gallop.
ABDOMEN: Soft, non-tender. No distension. BS+/normal.
EXTREMITIES: No peripheral cyanosis or edema. Left upper ext stiff, some contracture noted at elbow, strength 5/5 all ext's
Neuro: AOx3 conversant coherent
Psych: Calm
IMPRESSION:
69M Obesity (BMI>30) Hx rt sided GBM s/p surgical resection years ago, follows with [facility], HTN, HLD, NIDDM, Neuropathy, sz d/o p/w worsening left sided weakness. Since craniotomy for GBM, patient reports that he has had chronic
left upper ext weakness, stiffness, and pain (especially around elbow). Left upper ext symptoms had been worsening for the past weeks. Patient was prompted to visit ED when he developed left lower extremity weakness while getting ready to go to
gym for water therapy. Symptom since improved. VSS, stable respiratory status on room air. CT and CTA head/neck noted no acute abn's. Brain MRI concerning for acute-subacute infarcts vs neoplastic spread/involvement. Case was discussed with
neuro and transfer back to [facility] for further oncology neurosurgery evaluation/treatment was recommended. Patient agreeable to transfer. Dr Jarad Ko, patient's neurosurgeon, accepted for transfer however no beds available at this time. Patient
admitted pending bed availability [facility].
PLAN:
#CVA vs worsening/spread right GBM vs Focal Epilepsy
#hx Craniotomy Rt GBM resection
#Sz d/o
#Neuropathy
Tele Admit
Neuro eval appreciated
4mg decadron daily started as per ED's discussion with Dr Jarad Ko (patient's neuro oncologist at [facility] and accepting physician for transfer)
-patient however refusing due to irritability mood issues caused by steroid, Dr Ko discussed with patient over speaker phone and cleared him to stop steroids for now.
CT CTA head neck, MRI brain results appreciated
suspected lacunar infarcts due to radiation induced vascular changes as per patient's neurosurgeon.
EEG appreciated
cont home Keppra 75 mg BID
cont home Gabapentin
completed permissive HTN 24 hr
ST/PT/OT eval appreciated no needs
accepted for transfer to [place] for neuro oncology evaluation/treatment, Dr Jarad Ko patient's neuro oncologist accepting, transfer when bed available
cont home ASA, home rosuvastatin switched to atorvastatin
#HTN
home losartan held for permissive HTN, since resumed reduced dose 25 mg daily
given bp trend and response to reduced dose, 25 mg daily Cozaar appears to be sufficient at this time (home dose 100 mg)
hydralazine prn SBP >140 or DBP>100
#HLD
elevated cholesterol, triglycerides, LDL>70
home statin switched to Atorvastatin as above
Cholesterol lowering diet
#hx DM
#Hyperglycemia
cont home Jardiance Metformin
carb controlled diet
Low dose sliding scale, monitor and titrate insulin regimen as necessary
Updated A1c 5.5, seems too good to be true though
ST/PT/OT appreciated no needs
dvt ppx SCD
Full Code
I spent a total of 35 minutes with the patient or on the floor. More than 50% of this time involved counseling and coordination of care.
Anticipated Discharge: 24 - 48 hours
Subjective/Interval History
-
Date of Service: October 13, 2024
No acute distress, sitting up comfortably in chair. denies new acute issues at this time.
Objective Data
-
Labs:
Laboratory Results
10/12/24
06:42
Total Bilirubin 0.7
AST 20
ALT 18
Alkaline Phosphatase 72
Vital Signs:
Vital Signs
Temp Pulse Resp BP Pulse Ox
97.6 F 73 18 119/67 98
10/13/24 03:00 10/13/24 03:00 10/13/24 03:00 10/13/24 03:00 10/13/24 03:00
I&O
10/12/24 10/13/24 10/14/24
05:59 06:59 06:59
Intake Total
Balance
[2024-10-13] MEDS: LOW STRENGTH ASPIRIN 81 MG PO (07:35)
[2024-10-13] MEDS: CYMBALTA DELAYED RELEASE 60 MG PO ×2 (07:35→20:45)
[2024-10-13] MEDS: KEPPRA 750 MG PO ×2 (07:35→20:47)
[2024-10-13] MEDS: COZAAR 25 MG PO (07:36)
[2024-10-13] MEDS: LIDOCAINE 4% PATCH 1 PATCH TOPICAL (07:36)
[2024-10-13] MEDS: FARXIGA 10 MG PO (07:36)
[2024-10-13] MEDS: NOVOLOG FLEXPEN-LOW RESISTANCE SC ×3 (07:55→16:52)
--- NOTE | 2024-10-13 10:32 | W.PN.NEURO.1 ---
Today's Communication / Plan
-
.
Subjective/Objective
Subjective Data
Date of Service: October 13, 2024
Neurology follow-up note
Mr. Waldrop reports no new complaints. He requests to reduce steroid dose 'you will see it 'citing irritable mood and aggressiveness steroid side effects.
No reports of headaches.
LDL�171, hemoglobin A1c�5.5.
PMH: GBM, HTN, DLP, DM, MDD, OA
PSH: Right craniotomy, L TKA
SH:nonsmoker
All:NKDA
ROS: Positive for transient worsening of left leg weakness, left elbow pain, hearing impairment, left elbow pain
General: Well developed. In no acute distress.
Cardio: Regular rate and rhythm . Extremities are without cyanosis or edema.
Neuro:
Mental Status: Alert, oriented to self, place. Impaired attention and comprehension partially due to hearing impairment. Follows simple requests consistently. No hemineglect
Cranial Nerves: Pupils are equally round. EOMs full. Visual alexander full to confrontation. No ptosis. No nystagmus. V1-V3 intact to light touch and pinprick bilaterally, symmetric. Face symmetric. Impaired hearing AU. The palate elevated
well. SCMs and traps 5/5. Tongue midline. No dysarthria.
Motor: Left pronator drift. Left leg�full strength.. Reduced fine finger movements on the left
Sensory: Nonreproducible exam
Coordination: Dysmetria on the left side in proportion to weakness. No dysmetria on the right
Gait: deferred
Assessment and Plan:
I. Probable focal motor seizure less likely stuttering TIA.
II. Acute-subacute right temporal infarct versus neoplasm
III. Right parietal GBM
IV. Mild encephalopathy
V. Hyperlipidemia, controlled
-Continue Telemetry monitoring
-Continue Keppra 750 mg PO BID
-Wean off dexamethasone by 0.5 mg as tolerated.
-Please obtain medical records from [facility]
-Continue ASA 81 mg QD, Lipitor 40 mg nightly
-TTE if not done at [facility]
-Outpatient neuro-oncology follow-up in neurology
-DVT prophylaxis.
-Please recall neurology services any questions or concerns
I personally reviewed all radiology and labs along with past medical records pertinent to current medical problems. Total time spent in patient care is 35 minutes.
Thank you for allowing us to participate in the care of this patient. Please do not hesitate to contact us with any questions or concerns.
Objective Data
Vital Signs
Temp Pulse Resp BP Pulse Ox
36.9 C 86 17 120/71 98
10/13/24 07:10 10/13/24 07:10 10/13/24 07:10 10/13/24 07:10 10/13/24 08:15
Lab Results
10/12/24 06:42
10/12/24 06:42
Sodium 137 mmol/L (135-145) 10/12/24 06:42
Potassium 4.4 mmol/L (3.5-5.1) 10/12/24 06:42
BUN 12 mg/dl (9-20) 10/12/24 06:42
Glucose 151 mg/dl (70-99) H 10/12/24 06:42
Calcium 9.3 mg/dl (8.4-10.2) 10/12/24 06:42
LDL Cholesterol, Calc 171 mg/dl 10/12/24 06:42
Patient Allergies
No Known Allergies Allergy (Unverified 10/11/24 08:51)
Vital Signs and Labs
-
Vital Signs and Labs:
Vital Signs
Temp Pulse Resp BP Pulse Ox
36.9 C 85 17 144/78 98
10/13/24 11:44 10/13/24 11:44 10/13/24 11:44 10/13/24 11:44 10/13/24 11:44
Lab Results
10/12/24 06:42
10/12/24 06:42
Sodium 137 mmol/L (135-145) 10/12/24 06:42
Potassium 4.4 mmol/L (3.5-5.1) 10/12/24 06:42
BUN 12 mg/dl (9-20) 10/12/24 06:42
Glucose 151 mg/dl (70-99) H 10/12/24 06:42
Calcium 9.3 mg/dl (8.4-10.2) 10/12/24 06:42
LDL Cholesterol, Calc 171 mg/dl 10/12/24 06:42
Medications
-
Medications:
Generic Name Dose Route Start Last Admin
Trade Name Freq PRN Reason Stop Dose Admin
Acetaminophen 650 mg 10/11/24 16:23
Acetaminophen 650 Mg Rectal Suppository RECTAL 11/08/24 16:22
Q4HPRN PRN
REDD, mild pain, or temp >100.4F
Acetaminophen 650 mg 10/11/24 16:23 10/12/24 17:20
Acetaminophen 325 Mg Tablet PO 11/08/24 16:22 650 mg
Q4HPRN PRN Administration
REDD, mild pain, or temp >100.4F
Aspirin 81 mg 10/12/24 08:00 10/13/24 07:35
Aspirin 81 Mg Chewable Tablet PO 11/09/24 07:59 81 mg
DAILY LIZ Administration
Atorvastatin Calcium 40 mg 10/12/24 18:00 10/12/24 17:21
Atorvastatin (Lipitor) 40 Mg Tablet PO 11/09/24 17:59 40 mg
QPM LIZ Administration
Bisacodyl 10 mg 10/11/24 16:23
Bisacodyl 10 Mg Rectal Suppository RECTAL 11/08/24 16:22
[id number] PRN
constipation
Dapagliflozin 10 mg 10/12/24 08:00 10/13/24 07:36
Dapagliflozin (Farxiga) 10 Mg Tablet PO 11/09/24 07:59 10 mg
DAILY LIZ Administration
Dextrose 12.5 grams 10/11/24 14:04
Dextrose 50% (0.5 Grams/Ml) 50 Ml Syringe IV 11/08/24 14:03
[id number] PRN
hypoglycemia
Protocol
Duloxetine HCl 60 mg 10/11/24 20:00 10/13/24 07:35
Duloxetine Delayed Release 60 Mg Capsule PO 11/08/24 19:59 60 mg
BID LIZ Administration
Gabapentin 100 mg 10/11/24 22:00 10/12/24 20:03
Gabapentin 100 Mg Capsule PO 11/08/24 21:59 100 mg
HS LIZ Administration
Hydralazine HCl 5 mg 10/12/24 09:17
Hydralazine 20 Mg/Ml Vial IV 11/08/24 14:37
Q4HPRN PRN
SBP>140 or DBP>100
Insulin Aspart 0 units 10/11/24 16:30 10/13/24 12:00
Insulin Aspart Low Resistance 300 Units/3 Ml Pen.Injctr SC 11/08/24 16:29 Not Given
AC LIZ
Protocol
Levetiracetam 750 mg 10/11/24 20:00 10/13/24 07:35
Levetiracetam 250 Mg Regular Release Tablet PO 11/08/24 19:59 750 mg
BID LIZ Administration
Lidocaine 1 patch 10/11/24 14:30 10/13/24 07:36
Lidocaine 4% Topical Patch TOPICAL 11/08/24 14:29 1 patch
DAILY LIZ Administration
Protocol
Lorazepam 0.5 mg 10/12/24 16:15
Lorazepam 0.5 Mg Tablet PO 11/09/24 16:14
Q8HPRN PRN
anxiety
Losartan Potassium 25 mg 10/12/24 10:00 10/13/24 07:36
Losartan 25 Mg Tablet PO 11/09/24 09:59 25 mg
DAILY LIZ Administration
Metformin HCl 500 mg 10/11/24 18:00 10/12/24 17:21
Metformin 500 Mg Extended Release Tablet PO 11/08/24 17:59 500 mg
QPM LIZ Administration
Patch Removal 0 patch 10/12/24 20:00 10/12/24 20:04
Remove Lidocaine Patch REMOVE 11/09/24 19:59 1 patch
DAILY@2000 LIZ Administration
Polyethylene Glycol 17 grams 10/11/24 16:23
Polyethylene Glycol Powder 17 Grams Packet PO 11/08/24 16:22
DAILYPRN PRN
constipation
Quetiapine Fumarate 50 mg 10/11/24 22:00 10/12/24 20:03
Quetiapine 25 Mg Tablet PO 11/08/24 21:59 50 mg
HS LIZ Administration
Senna/Docusate Sodium 1 tablet 10/11/24 16:23
Docusate W/Senna (Aaliyah-Colace) Tablet PO 11/08/24 16:22
BIDPRN PRN
constipation
Sodium Chloride 0 flush 10/11/24 15:00
Sodium Chloride 0.9% (Flush) Syringe IV 11/08/24 14:59
PER PROTOCOL LIZ
Home Medications
-
Home Medications
duloxetine 60 mg capsule,delayed release 60 mg PO BID 08/26/20
losartan 100 mg tablet (Cozaar) 100 mg PO Daily ##0 09/10/20
empagliflozin 25 mg tablet (Jardiance) 25 mg PO DAILY 02/16/23
metformin 500 mg tablet,extended release 24hr (osmotic) 500 mg PO QPM 02/16/23
quetiapine 50 mg tablet 50 mg PO HS 02/16/23
acetaminophen 325 mg tablet (Tylenol) 650 mg PO Q6H PRN Pain 10/11/24
aspirin 81 mg chewable tablet 81 mg PO DAILY 10/11/24
gabapentin 100 mg capsule 100 mg PO HS 10/11/24
levetiracetam 750 mg tablet (Keppra) 750 mg PO BID 10/11/24
rosuvastatin 10 mg tablet (Crestor) 10 mg PO DAILY 10/11/24
[2024-10-13 11:44] VITALS: BP 144/78
[2024-10-13 11:58] LABS: Glucose - Point of Care 84 mg/dl (70-99)
--- NOTE | 2024-10-13 13:22 | CM ---
Spoke with patient to obtain information for assessment. Patient is hoping to be transferred to [facility] soon, as soon as there is a bed. Patient lives alone in a one floor apartment with a flight of steps to enter. He described himself as independent
with his ADLs, personal care, dressing and bathing. He denied any DME. He has had VN through [facility] in the past but is not current. He has not been to a SNF.
Patient has a prescription plan and uses, [facility] pharmacy for all of his medications.
His PCP is, Russ Christensen.
Plan: Case management will continue to follow and assist with discharge planning. Transfer to [facility] when bed available.
[2024-10-13 15:10] VITALS: BP 146/78
[2024-10-13 16:51] LABS: Glucose - Point of Care 106 mg/dl (70-99)
[2024-10-13] MEDS: GLUCOPHAGE XR EXTENDED RELEASE 500 MG PO (17:03)
[2024-10-13] MEDS: LIPITOR 40 MG PO (17:03)
[2024-10-13 19:45] VITALS: BP 136/76
[2024-10-13] MEDS: SEROQUEL 50 MG PO (20:47)
[2024-10-13] MEDS: NEURONTIN 100 MG PO (20:47)
[2024-10-13 21:32] LABS: Glucose - Point of Care 96 mg/dl (70-99)
[2024-10-13 21:46] LABS: Keppra (Levetiracetam) 20 ug/mL (10-40)
[2024-10-13 23:10] VITALS: BP 132/74
[2024-10-14 03:40] VITALS: BP 117/71
[2024-10-14 07:00] VITALS: BP 140/86
[2024-10-14] MEDS: KEPPRA 750 MG PO ×2 (07:52→21:15)
[2024-10-14] MEDS: CYMBALTA DELAYED RELEASE 60 MG PO ×2 (07:52→21:15)
[2024-10-14] MEDS: COZAAR 25 MG PO (07:52)
[2024-10-14] MEDS: FARXIGA 10 MG PO (07:53)
[2024-10-14] MEDS: LOW STRENGTH ASPIRIN 81 MG PO (07:53)
[2024-10-14] MEDS: LIDOCAINE 4% PATCH 1 PATCH TOPICAL (07:53)
[2024-10-14] MEDS: NOVOLOG FLEXPEN-LOW RESISTANCE SC ×2 (08:00→17:05)
[2024-10-14 08:01] LABS: Glucose - Point of Care 96 mg/dl (70-99)
[2024-10-14 11:00] VITALS: BP 143/78
--- NOTE | 2024-10-14 11:22 | CM ---
As per nursing [facility] transfer team called today for update and ne bed available yet.
Transfer sheets and Med nec form s completed.
As per chart receiving MD Jarad Ko receiving [facility] MD.
Ambulance BLS for transport.
PLAN Awaiting [facility] bed
[2024-10-14 12:21] LABS: Glucose - Point of Care 158 mg/dl (70-99)
[2024-10-14] MEDS: NOVOLOG FLEXPEN-LOW RESISTANCE 1 UNITS SC (13:53)
--- NOTE | 2024-10-14 14:44 | W.PN.HOSP.TC ---
Today's Communication/Plan
-
Awaiting transfer to [place]
Assessment / Plan
Assessment / Plan
NAD
Hearing aids bilaterally
Wearing corrective lenses, scleral Anicteric
MMM
No JVD
CTABL
RRR, S1/S2
Soft, NT, ND, BS+
Warm, Dry
AAOx3, left upper emblem drawer in strength less then right upper emblem drawer in strength, cn II xii intact, 5/5 motor strenght in b/l ue and leg
Calm
#CVA vs worsening/spread right GBM vs Focal Epilepsy
#hx Craniotomy Rt GBM resection
#Sz d/o
#Neuropathy
Tele Admit
Neuro eval appreciated
4mg decadron daily started as per ED's discussion with Dr Jarad Ko (patient's neuro oncologist at [facility] and accepting physician for transfer)
-patient however refusing due to irritability mood issues caused by steroid, Dr Ko discussed with patient over speaker phone and cleared him to stop steroids for now.
CT CTA head neck, MRI brain results appreciated
suspected lacunar infarcts due to radiation induced vascular changes as per patient's neurosurgeon.
EEG appreciated
cont home Keppra 750 mg BID
cont home Gabapentin
completed permissive HTN 24 hr
ST/PT/OT eval appreciated no needs
accepted for transfer to [place] for neuro oncology evaluation/treatment, Dr Jarad Ko patient's neuro oncologist accepting, transfer when bed available
cont home ASA, home rosuvastatin switched to atorvastatin
#HTN
home losartan held for permissive HTN, since resumed reduced dose 25 mg daily
given bp trend and response to reduced dose, 25 mg daily Cozaar appears to be sufficient at this time (home dose 100 mg)
hydralazine prn SBP >140 or DBP>100
#HLD
elevated cholesterol, triglycerides, LDL>70
home statin switched to Atorvastatin as above
Cholesterol lowering diet
#hx DM
#Hyperglycemia
cont home Jardiance Metformin
carb controlled diet
Low dose sliding scale, monitor and titrate insulin regimen as necessary
Updated A1c 5.5, seems too good to be true though
ST/PT/OT appreciated no needs
Awaiting transfer to [place]
Anticipated Discharge: 24 - 48 hours
Subjective/Interval History
-
Date of Service: October 14, 2024
Seen and examined. No new complaints. No acute overnight events.
Objective Data
-
Vital Signs:
Vital Signs
Temp Pulse Resp BP Pulse Ox
97.4 F 72 16 143/78 99
10/14/24 11:00 10/14/24 11:00 10/14/24 11:00 10/14/24 11:00 10/14/24 11:00
I&O
10/13/24 10/14/24 10/15/24
06:59 06:59 06:59
Intake Total 480 / 480
Balance 480 / 480
[2024-10-14 15:00] VITALS: BP 116/69
--- NOTE | 2024-10-14 15:42 | PTOTSP ---
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
Quick Aphasia Battery Form 1 Paraguayan overall score = 9.25 (WFL). Mild changes noted to auditory comprehension (i.e., required frequent repetitions, unable to determine if this was a hearing deficit vs processing vs attention), word finding (i.e.,
paraphasias that were self-corrected), and oral reading (i.e., paraphasias, corrected).
MOCA version 8.1 [place]ayan administered to further assess cognitive linguistic skills. Total score =14/30, below normal (26 or higher). Points were: visuospatial/executive function (0/5), naming (2/3), attention (0/3), language (0/3), abstraction
(1/2), delayed recall (0/5; Memory Index Score =6/15), and orientation (6/6). Informally, poor insight/judgement re: deficits noted.
Recommendation:
1. Continued SALES MARKETING DIRECTOR evaluation/therapy at next level of care.
2. Supervision/assist with higher level cognitive tasks after D/C from acute care setting.
[2024-10-14 16:58] LABS: Glucose - Point of Care 111 mg/dl (70-99)
[2024-10-14] MEDS: LIPITOR 40 MG PO (17:31)
[2024-10-14] MEDS: GLUCOPHAGE XR EXTENDED RELEASE 500 MG PO (17:31)
[2024-10-14 19:00] VITALS: BP 129/60
[2024-10-14] MEDS: NEURONTIN 100 MG PO (21:16)
[2024-10-14] MEDS: SEROQUEL 50 MG PO (21:16)
[2024-10-14 21:30] LABS: Glucose - Point of Care 90 mg/dl (70-99)
[2024-10-14 23:00] VITALS: BP 130/82
[2024-10-15 03:00] VITALS: BP 124/75
[2024-10-15 07:30] LABS: Glucose - Point of Care 108 mg/dl (70-99)
[2024-10-15 07:47] VITALS: BP 151/86
[2024-10-15] MEDS: NOVOLOG FLEXPEN-LOW RESISTANCE SC ×3 (07:54→16:45)
[2024-10-15] MEDS: KEPPRA 750 MG PO ×2 (08:16→19:51)
[2024-10-15] MEDS: FARXIGA 10 MG PO (08:16)
[2024-10-15] MEDS: LOW STRENGTH ASPIRIN 81 MG PO (08:16)
[2024-10-15] MEDS: COZAAR 25 MG PO (08:16)
[2024-10-15] MEDS: CYMBALTA DELAYED RELEASE 60 MG PO ×2 (08:16→19:51)
[2024-10-15] MEDS: LIDOCAINE 4% PATCH 1 PATCH TOPICAL (08:16)
[2024-10-15 11:45] VITALS: BP 140/89
--- NOTE | 2024-10-15 12:06 | W.PN.HOSP.TC ---
Today's Communication/Plan
-
I am not sure how long is going to take to get a bed at [facility].
As neurology has not evaluated him in some time we will asked him to come by to see you again.
If they recommend discharge home and then outpatient neurology follow-up we will go towards that direction however he may be hesitant of leaving today as he is rather adamant of being transferred over to [facility].
Assessment / Plan
Assessment / Plan
NAD
Hearing aids bilaterally
Wearing corrective lenses, scleral Anicteric
MMM
No JVD
CTABL
RRR, S1/S2
Soft, NT, ND, BS+
Warm, Dry
AAOx3, left upper application tester strength less then right upper application tester strength, cn II xii intact, 5/5 motor strenght in b/l ue and leg
Calm
#CVA vs worsening/spread right GBM vs Focal Epilepsy
#hx Craniotomy Rt GBM resection
#Sz d/o
#Neuropathy
Tele Admit
Neuro eval appreciated
4mg decadron daily started as per ED's discussion with Dr Jarad Ko (patient's neuro oncologist at [facility] and accepting physician for transfer)
-patient however refusing due to irritability mood issues caused by steroid, Dr Ko discussed with patient over speaker phone and cleared him to stop steroids for now.
CT CTA head neck, MRI brain results appreciated
suspected lacunar infarcts due to radiation induced vascular changes as per patient's neurosurgeon.
EEG appreciated
cont home Keppra 750 mg BID
cont home Gabapentin
completed permissive HTN 24 hr
ST/PT/OT eval appreciated no needs
accepted for transfer to [facility] for neuro oncology evaluation/treatment, Dr Jarad Ko patient's neuro oncologist accepting, transfer when bed available
cont home ASA, home rosuvastatin switched to atorvastatin
#HTN
home losartan held for permissive HTN, since resumed reduced dose 25 mg daily
given bp trend and response to reduced dose, 25 mg daily Cozaar appears to be sufficient at this time (home dose 100 mg)
hydralazine prn SBP >140 or DBP>100
#HLD
elevated cholesterol, triglycerides, LDL>70
home statin switched to Atorvastatin as above
Cholesterol lowering diet
#hx DM
#Hyperglycemia
cont home Jardiance Metformin
carb controlled diet
Low dose sliding scale, monitor and titrate insulin regimen as necessary
Updated A1c 5.5, seems too good to be true though
ST/PT/OT appreciated no needs
Awaiting transfer to [facility]
Anticipated Discharge: 24 - 48 hours
Subjective/Interval History
-
Date of Service: October 15, 2024
Seen and examined. No new complaints. No acute overnight events.
Objective Data
-
Vital Signs:
Vital Signs
Temp Pulse Resp BP Pulse Ox
98.3 F 78 17 140/89 96
10/15/24 11:45 10/15/24 11:45 10/15/24 11:45 10/15/24 11:45 10/15/24 11:45
I&O
10/14/24 10/15/24 10/16/24
06:59 06:59 06:59
Intake Total 480 / 480 1080 / 1080
Balance 480 / 480 1080 / 1080
[2024-10-15 12:07] LABS: Glucose - Point of Care 105 mg/dl (70-99)
[2024-10-15 15:02] VITALS: BP 111/86
[2024-10-15 16:38] LABS: Glucose - Point of Care 100 mg/dl (70-99)
[2024-10-15] MEDS: LIPITOR 40 MG PO (17:00)
[2024-10-15] MEDS: GLUCOPHAGE XR EXTENDED RELEASE 500 MG PO (17:01)
[2024-10-15 18:43] VITALS: BP 148/95
[2024-10-15] MEDS: NEURONTIN 100 MG PO (20:00)
[2024-10-15] MEDS: SEROQUEL 50 MG PO (20:00)
[2024-10-15 21:22] LABS: Glucose - Point of Care 93 mg/dl (70-99)
[2024-10-15 23:00] VITALS: BP 94/57
[2024-10-16 00:20] VITALS: BP 120/74
[2024-10-16 03:00] VITALS: BP 107/62
[2024-10-16 07:12] VITALS: BP 138/92
[2024-10-16 08:00] LABS: Glucose - Point of Care 98 mg/dl (70-99)
[2024-10-16] MEDS: NOVOLOG FLEXPEN-LOW RESISTANCE SC ×3 (08:20→17:36)
[2024-10-16] MEDS: COZAAR 25 MG PO (08:36)
[2024-10-16] MEDS: KEPPRA 750 MG PO (08:36)
[2024-10-16] MEDS: FARXIGA 10 MG PO (08:36)
[2024-10-16] MEDS: LOW STRENGTH ASPIRIN 81 MG PO (08:36)
[2024-10-16] MEDS: CYMBALTA DELAYED RELEASE 60 MG PO (08:36)
[2024-10-16] MEDS: LIDOCAINE 4% PATCH 1 PATCH TOPICAL (08:37)
--- NOTE | 2024-10-16 10:11 | W.PN.HOSP.TC ---
Today's Communication/Plan
-
confirmed with transfer center that bed still pending
LEft VM to to discuss if transfer should be still done or outpatient follow up needed as patient asymptomatic since admission
Assessment / Plan
Assessment / Plan
NAD
Hearing aids bilaterally
Wearing corrective lenses, scleral Anicteric
MMM
No JVD
CTABL
RRR, S1/S2
Soft, NT, ND, BS+
Warm, Dry
AAOx3, left upper spray gun sizer strength less then right upper spray gun sizer strength, cn II xii intact, 5/5 motor strenght in b/l ue and leg
Calm
#CVA vs worsening/spread right GBM vs Focal Epilepsy
#hx Craniotomy Rt GBM resection
#Sz d/o
#Neuropathy
Tele Admit
Neuro eval appreciated
4mg decadron daily started as per ED's discussion with Dr Jarad Ko (patient's neuro oncologist at [facility] and accepting physician for transfer)
-patient however refusing due to irritability mood issues caused by steroid, Dr Ko discussed with patient over speaker phone and cleared him to stop steroids for now.
CT CTA head neck, MRI brain results appreciated
suspected lacunar infarcts due to radiation induced vascular changes as per patient's neurosurgeon.
EEG appreciated
cont home Keppra 750 mg BID
cont home Gabapentin
completed permissive HTN 24 hr
ST/PT/OT eval appreciated no needs
accepted for transfer to [facility] for neuro oncology evaluation/treatment, Dr Jarad Ko patient's neuro oncologist accepting, transfer when bed available
cont home ASA, home rosuvastatin switched to atorvastatin
#HTN
home losartan held for permissive HTN, since resumed reduced dose 25 mg daily
given bp trend and response to reduced dose, 25 mg daily Cozaar appears to be sufficient at this time (home dose 100 mg)
hydralazine prn SBP >140 or DBP>100
#HLD
elevated cholesterol, triglycerides, LDL>70
home statin switched to Atorvastatin as above
Cholesterol lowering diet
#hx DM
#Hyperglycemia
cont home Jardiance Metformin
carb controlled diet
Low dose sliding scale, monitor and titrate insulin regimen as necessary
Updated A1c 5.5, seems too good to be true though
ST/PT/OT appreciated no needs
Awaiting transfer to [facility]
Anticipated Discharge: > 48 hours
Subjective/Interval History
-
Date of Service: October 16, 2024
Objective Data
-
Vital Signs:
Vital Signs
Temp Pulse Resp BP Pulse Ox
97.5 F 76 12 138/92 95
10/16/24 07:12 10/16/24 07:12 10/16/24 07:12 10/16/24 08:36 10/16/24 07:12
I&O
10/15/24 10/16/24 10/17/24
06:59 06:59 06:59
Intake Total 1080 / 1080 470 / 470 480 / 480
Balance 1080 / 1080 470 / 470 480 / 480
Review of Systems
-
History Source: Patient
All other systems: Reviewed and negative
Physical Exam
-
General: Comfortable
HEENT: Normocephalic
Respiratory: Clear to Auscultation
Cardiac: Regular Rhythm
Musculoskeletal: No Clubbing, No Cyanosis and No Edema
Neuro: Awake, Alert, Oriented, AO x 3 and No Motor Deficits
Psych: Calm
--- NOTE | 2024-10-16 10:20 | CM ---
Transfer sheets and Med nec forms completed.Awaiting bed at [facility]
MD to speak with Neurosurgery team for plan being transfer to [facility] VS home with out pt follow up with Neuro.
Receiving MD is Jarad Ko .
Ambulance BLS for transport.
PLAN Transfer to [facility] pending
[2024-10-16 11:19] VITALS: BP 130/91
[2024-10-16 12:00] LABS: Glucose - Point of Care 92 mg/dl (70-99)
--- NOTE | 2024-10-16 14:46 | PN.CDI ---
CDI
- -
CDI:
Physician Documentation Request
Admit Date: 10/11/24 14:24
Dear Doctor Konstantin,
Please review the following and provide your response in the progress notes.
Clinical Indicators:
Pt admitted with CVA vs worsening/ spread GBM vs focal epilepsy.
forklift picker notes agitated and forgetful
10/13 Neurology Progress note: 'IV. Mild encephalopathy'
Please specify the known or suspected type of the documented encephalopathy.
Metabolic
Toxic
Toxic metabolic
Anoxic
Due to a specified condition (such as UTI, hyponatremia, CVA etc)
Other
Use of terms such as suspected, likely, concern for, or probable (associated with a specific diagnosis that is being evaluated, monitored, or treated as if it exists) are acceptable and can be coded in the inpatient setting, when documented at the
time of discharge.
Thank you,
Sugar Howell RN, BSN
CDI Specialist
[place] [employer]
Please use your independent medical judgment in providing your response.
[2024-10-16 15:01] VITALS: BP 121/86
[2024-10-16 17:30] LABS: Glucose - Point of Care 96 mg/dl (70-99)
[2024-10-16] MEDS: LIPITOR 40 MG PO (17:36)
[2024-10-16] MEDS: GLUCOPHAGE XR EXTENDED RELEASE 500 MG PO (17:36)
--- NOTE | 2024-10-16 17:45 | W.DCSUMMARY ---
Addendum entered and electronically signed by Kailash Griffith MD 10/16/24 17:50:
Atorvastatin Rx was cancelled
Original Note:
Discharge Summary
Discharge Data
Date of Admission: 10/11/24
Date of Discharge: 10/16/24
-
Pending Results: No
Hospital Course
69yo M with PMHx of glyoblastoma of the brain s/p resection, managedby team in [facility] came after an episode of LLE weakness, transient, lasting for minutes, admitted with concern for TIA. Telemetry without significant arrhythmia, Echo done in January
2023 without PFO. CTA w/o LVO and no hemodynamically significant carotid stenosis. MRI brain with postsurgical changes and mild nodular enhancement that can be 2/2 postsurgical changes vs neoplasm, abnormal signal intensity and enhancement within
periventricular white matter of the posterior body of the right lateral ventricle and temporal horn, that could be acute/subacute stroke vs neoplasm. Initially planned for hospital to hospital transfer to [facility] under care, however later as
per MRI review done by and in comparison with MRI brain done 3 weeks before current admission: no significant changes seen. Possible small stroke in lentiform nuchleus. Transfer was cancelled and as per agreement with patient neurosurgery -
he can be discharged as they will arrange close f/u in [facility]. Patient remained largely asymptomatic over his hospital stay. neurology was concerned for possible fokal motor seizures, so keppra also was started. Lostartan was decreased to avoid
hypotension as BP was running on lower side. Crestor increased for improved LDL control. Patient is medically stable to be d/c home
I have spent at least 36min preparing discharge, reviewing chart, test results, communication with consultnats and direct patient care
A/P:
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
#Acute-subacute right temporal infarct versus neoplasm
#Right parietal GBM
#Mild encephalopathy
#Hyperlipidemia, controlled
#hx Craniotomy Rt GBM resection
#[facility] HTN
#DM type 2 with neuropathy
Discharge Plan
-
Patient Disposition: Home (Routine Discharge)
Discharge Diagnosis/Procedures: Infarct vs Neoplasm
Diet: Diabetic, Carb Controlled
Activity: As tolerated
Driving Restrictions: No driving
Referrals:
Russ Christensen CRNP [Family Provider] -
Peng Maynard MD [Active] - in four to six weeks
Prescriptions:
New
atorvastatin 40 mg Tablet
40 mg PO QPM Qty: 30 0RF
lidocaine 4 % Adhesive Patch,Medicated
1 patch topical DAILY Qty: 30 0RF
levetiracetam 250 mg Tablet
750 mg PO BID Qty: 180 0RF
losartan 25 mg Tablet
25 mg PO DAILY Qty: 30 0RF
Continued
duloxetine 60 MG capsule,delayed release(DR/EC)
60 mg PO BID
metformin 500 mg Tablet Extended Release 24hr
500 mg PO QPM
quetiapine 50 mg Tablet
50 mg PO HS
Jardiance 25 mg Tablet
25 mg PO DAILY
levetiracetam [Keppra] 750 mg Tablet
750 mg PO BID
aspirin 81 mg Tablet,Chewable
81 mg PO DAILY
gabapentin 100 mg Capsule
100 mg PO HS
acetaminophen [Tylenol] 325 mg Tablet
650 mg PO Q6H PRN (Reason: Pain)
Changed
rosuvastatin [Crestor] 10 mg Tablet
20 mg PO DAILY Qty: 0 0RF
Discontinued
losartan [Cozaar] 100 MG tablet
100 mg PO Daily Qty: 0 0RF
Discharge Orders:
Discharge Patient (As Directed); Ordered 10/16/24
Ordered By: Kailash Griffith
Discharge Date and Time
Print Language: TELUGU
--- NOTE | 2024-10-16 19:53 | PTCARENOTE ---
Patient discharged. Patient wheeled in wheelchair to [facility]. Patient ambulated from wheelchair to car. Brother and sister in law picked him up.
== END 2024-10-16 19:45 | disposition home or self-care (01) | DRG 100 ==
LOC: 3 WEST ACU 14:24
PROVIDERS: ADMITTING PHYSICIAN Internal Medicine; ATTENDING PHYSICIAN Hospitalist; CONSULT PHYSICIAN Psychiatry & Neurology Neurology; EMERGENCY PHYSICIAN Emergency Medicine; FAMILY PHYSICIAN Nurse Practitioner Family
DX: G40.109 Localization-related (focal) (partial) symptomatic epilepsy and epileptic syndromes with simple partial seizures, not intractable, without status epilepticus (principal); I63.9 Cerebral infarction, unspecified; C71.9 Malignant neoplasm of brain, unspecified; G81.94 Hemiplegia, unspecified affecting left nondominant side; G93.40 Encephalopathy, unspecified; Z79.82 Long term (current) use of aspirin; Z79.899 Other long term (current) drug therapy; E11.40 Type 2 diabetes mellitus with diabetic neuropathy, unspecified; E66.9 Obesity, unspecified; Z68.30 Body mass index [BMI] 30.0-30.9, adult; I10 Essential (primary) hypertension; E78.00 Pure hypercholesterolemia, unspecified; E11.65 Type 2 diabetes mellitus with hyperglycemia
CPT/HCPCS: 70450; 70496; 70498; 70553; 80048; 80061; 80076; 80177; 82962; 83036; 83735; 85025; 85027; 92523; 92610; 93005; 95816; 97162; 97166; 99291; Q9967

== ENCOUNTER 2024-11-27 17:12 | Emergency (ER) | payer MEDICARE, SELFPAY ==
[2024-11-27 17:21] VITALS: BP 112/80
[2024-11-27 17:54] LABS: % Basophils 0.5 % (0-2); % Eosinophils 2.2 % (0-6); % Immature Granulocytes 0.2 % (0-0.5); % Lymphocytes 28.1 % (20.5-51.1); % Monocytes 11.1 % (1.7-9.3); % Neutrophils 57.9 % (42.2-75.2); Absolute Eosinophils 0.1 10^3/uL (0-0.7); Absolute Lymphocytes 1.6 10^3/uL (1.2-3.4); Absolute Monocytes 0.6 10^3/uL (0.1-0.6); Absolute Neutrophils 3.2 10^3/uL (1.4-6.5); Hematocrit 37.9 % (39.0-52.0); Hemoglobin 13.3 g/dL (13.0-18.0); Mean Corp Hgb Conc. 35.1 g/dL (33.0-37.0); Mean Corpuscular Hgb 29.8 pg (27.0-31.0); Mean Platelet Volume 9.5 fL (7.4-10.4); Nucleated Red Blood Cells % 0 % (-); Platelet Count 231 10^3/uL (130-400); Red Blood Cell Count 4.46 10^6/uL (4.70-6.10); Red Cell Dist. Width 13.5 % (11.5-14.5); White Blood Cell Count 5.6 10^3/uL (4.8-10.8)
[2024-11-27 18:09] LABS: ALT (SGPT) 22 U/L (0-50); AST (SGOT) 21 U/L (17-59); Albumin 4.4 g/dl (3.5-5.0); Alkaline Phosphatase 74 U/L (38-126); Blood Urea Nitrogen 14 mg/dl (9-20); Calcium 9.3 mg/dl (8.4-10.2); Carbon Dioxide 22 mmol/L (22-30); Chloride 107 mmol/L (98-107); Glucose 108 mg/dl (70-99); Potassium 4.1 mmol/L (3.5-5.1); Sodium 141 mmol/L (135-145); Total Bilirubin 0.6 mg/dl (0.2-1.3); Total Protein 6.4 g/dl (6.3-8.2); eGFR > 60.00
[2024-11-27 18:20] LABS: Troponin I < 0.012 ng/ml
[2024-11-27 20:30] VITALS: BP 131/82
[2024-11-27 20:52] VITALS: BMI 37.6
[2024-11-27 21:00] VITALS: BP 120/71
--- NOTE | 2024-11-27 21:29 | ED.GENMED ---
History of Present Illness
General
Chief Complaint: Headache
Source: patient
Time Seen by Provider: 11/27/24 21:10
History of Present Illness
History of Present Illness:
69-year-old male presents to the emergency room primarily complaining of pain and some weakness in his left upper extremity. This has been present for some time but seems much worse recently. Patient also thought his speech might be slightly
slurred though friends and other people he talk to thought it sounded baseline for him.
Past History
Past History
ED Past Medical History: Cancer (Glioblastoma brain tumor), HTN, Hypercholesterolemia, NIDDM and Other (CT show a CVA but MRI is negative, Chronic left arm numbness since last May 2023)
ED Past Surgical History: Orthopedic (Left total knee arthroscopy)
Social History
Tobacco: Non-smoker
Alcohol: Occasional
Drug: None
Personal: Single
Living: alone
Family History
Family History: Other (Reviewed and noncontributory)
Phy Exam
Physical Exam
Physical Exam:
General: Awake, Alert, Oriented X3. Appears mildly uncomfortable from left arm pain
Vitals: unremarkable
Head: Atraumatic
Eyes: Pupils equal, EOMI
Throat: Airway intact, no exudates
Neck: Trachea midline
Lungs: Clear and equal b/l
Heart: Regular rate, no murmurs
Abd: Soft, Nontender, No pulsatile mass
Neuro: Cranial nerves intact, muscle strength in left arm appears mostly intact though patient has difficulty raising the arm due to pain, sensation is intact.
Skin: Warm, dry, no rash
Extremities: pulses equal b/l, no edema. Multiple lidocaine patches placed on left arm
Course
Orders/Labs/Results
Orders:
Orders
11/27/24 17:25
Electrocardiogram (*1) Urgent
Reason for Study: Chest Pain
EKG- Treatment ONCE
CXR2 [CR Chest - 2 Views ] Urgent
Comment:
Reason For Exam: pain/shoulders
11/27/24 17:45
Complete Blood Count/With Diff Urgent
Comprehensive Metabolic Panel Urgent
Troponin I Urgent
11/27/24 21:28
CT Cervical Spine W/o Iv Contr Urgent
Comment:
Reason For Exam: neck pain, left arm pain
CT Head W/o Iv Contrast Urgent
Comment:
Reason For Exam: left arm weakness, ? slurred speech
Abnormal Lab Results
11/27/24
17:45
RBC 4.46 L 10^6/uL
(4.70-6.10)
Hct 37.9 L %
(39.0-52.0)
Monocytes % 11.1 H %
(1.7-9.3)
Glucose 108 H mg/dl
(70-99)
11/27/24 17:45
11/27/24 17:45
Vital Signs
Initial and Last Documented VS:
Initial Vital Signs
Temp Pulse Resp BP Pulse Ox
98.2 F 89 16 112/80 98
11/27/24 17:21 11/27/24 17:21 11/27/24 17:21 11/27/24 17:21 11/27/24 17:21
Last Documented Vital Signs
Temp Pulse Resp BP Pulse Ox
98.2 F 89 16 120/71 96
11/27/24 17:21 11/27/24 17:21 11/27/24 17:21 11/27/24 21:00 11/27/24 21:15
ED Attending Note
-
Portions of this chart may have been created with voice recognition software.� Occasional wrong word or��sound alike� substitutions may have occurred due to the inherent limitations of voice recognition software.
Discharge Plan
Departure
Prescriptions:
No Action
duloxetine 60 MG capsule,delayed release(DR/EC)
60 mg PO BID
metformin 500 mg Tablet Extended Release 24hr
500 mg PO QPM
quetiapine 50 mg Tablet
50 mg PO HS
Jardiance 25 mg Tablet
25 mg PO DAILY
aspirin 81 mg Tablet,Chewable
81 mg PO DAILY
gabapentin 100 mg Capsule
100 mg PO HS
acetaminophen [Tylenol] 325 mg Tablet
650 mg PO Q6H PRN (Reason: Pain)
lidocaine 4 % Adhesive Patch,Medicated
1 patch topical DAILY Qty: 30 0RF
levetiracetam 250 mg Tablet
750 mg PO BID Qty: 180 0RF
losartan 25 mg Tablet
25 mg PO DAILY Qty: 30 0RF
rosuvastatin 20 mg capsule, sprinkle
20 mg PO DAILY Qty: 30 0RF
Interventions
Interventions:
*Risk Screen - Suicide Last Done: 11/27/24 17:21
*General Assessment Last Done: 11/27/24 20:52
*Neglect/Abuse Screening Last Done: 11/27/24 17:21
*ED- Fall Risk Assessment Last Done: 11/27/24 17:21
*ED COVID-19 Vaccine History Last Done: 11/27/24 20:52
ED- Neurological Assessment Last Done: 11/27/24 20:52
Discharge Date and Time
Print Language: BHUTANESE
[2024-11-27] MEDS: TORADOL 15 MG IV (21:39)
[2024-11-28] MEDS: DELTASONE 50 MG PO (00:02)
== END 2024-11-28 00:11 | disposition home or self-care (01) ==
LOC: EMR 17:12
PROVIDERS: Emergency Medicine; EMERGENCY PHYSICIAN Emergency Medicine; FAMILY PHYSICIAN Nurse Practitioner Family
DX: M54.12 Radiculopathy, cervical region (principal); I10 Essential (primary) hypertension; E78.00 Pure hypercholesterolemia, unspecified; E11.9 Type 2 diabetes mellitus without complications; Z86.73 Personal history of transient ischemic attack (TIA), and cerebral infarction without residual deficits
CPT/HCPCS: 99284; 96374; 70450; 71046; 72125; 80053; 84484; 85025; 93005

== ENCOUNTER 2024-12-11 19:02 | Emergency (ER) | payer MEDICARE, SELFPAY ==
[2024-12-11 19:05] VITALS: BP 116/71
[2024-12-11 19:41] LABS: % Basophils 0.6 % (0-2); % Eosinophils 2.1 % (0-6); % Immature Granulocytes 0.2 % (0-0.5); % Lymphocytes 32.5 % (20.5-51.1); % Monocytes 8.7 % (1.7-9.3); % Neutrophils 55.9 % (42.2-75.2); Absolute Eosinophils 0.1 10^3/uL (0-0.7); Absolute Lymphocytes 2.1 10^3/uL (1.2-3.4); Absolute Monocytes 0.6 10^3/uL (0.1-0.6); Absolute Neutrophils 3.7 10^3/uL (1.4-6.5); Hematocrit 41.2 % (39.0-52.0); Hemoglobin 14.2 g/dL (13.0-18.0); Mean Corp Hgb Conc. 34.5 g/dL (33.0-37.0); Mean Corpuscular Volume 87.1 fL (80.0-94.0); Mean Platelet Volume 9.2 fL (7.4-10.4); Nucleated Red Blood Cells % 0 % (-); Platelet Count 231 10^3/uL (130-400); Red Blood Cell Count 4.73 10^6/uL (4.70-6.10); Red Cell Dist. Width 14.3 % (11.5-14.5); White Blood Cell Count 6.6 10^3/uL (4.8-10.8)
[2024-12-11 19:54] LABS: ALT (SGPT) 22 U/L (0-50); AST (SGOT) 19 U/L (17-59); Alkaline Phosphatase 73 U/L (38-126); Blood Urea Nitrogen 11 mg/dl (9-20); Calcium 9.2 mg/dl (8.4-10.2); Carbon Dioxide 25 mmol/L (22-30); Chloride 107 mmol/L (98-107); Glucose 99 mg/dl (70-99); Potassium 4.1 mmol/L (3.5-5.1); Sodium 138 mmol/L (135-145); Total Bilirubin 0.6 mg/dl (0.2-1.3); Total Protein 6.3 g/dl (6.3-8.2); eGFR > 60.00
--- NOTE | 2024-12-11 20:45 | ED.GENMED ---
History of Present Illness
General
Chief Complaint: Numbness
Time Seen by Provider: 12/11/24 20:45
History of Present Illness
History of Present Illness:
TIME OF INITIAL ENCOUNTER:
HPI: Patient has history of glioblastoma diagnosed in 2021 that presented with slurred speech. More recently, he has been having left shoulder discomfort and occasionally has had paresthesias. He also reported having left leg weakness which has
since resolved and he was admitted here with some concern for stroke. Ultimately his symptoms were more likely felt to be related to the treatment of glioblastoma. He has been having increasing pain to the left shoulder which has been
nontraumatic. He states that when he was here in the past with Toradol and prednisone he markedly improved. He is requesting Toradol and prednisone again. He has been on gabapentin but this has not helped.
EXAM:
GENERAL: Well appearing in no distress
HEENT: Moist oral mucosa
CARDIOVASCULAR: No murmurs, normal heart rate, regular rhythm, No chest wall tenderness
PULMONARY: No respiratory distress, breath sounds are clear and equal
ABDOMEN: Soft with no peritoneal signs, no tenderness
NEUROLOGIC: Excellent strength all extremities, no coordination deficits, minimal if any dysarthria
PSYCHIATRIC: Appropriate mental status, normal insight and judgement
EXTREMITIES: There is decreased active range of motion at the left shoulder due to pain
SKIN: No rash, no lesions
NUMBER AND COMPLEXITY OF PROBLEMS ADDRESSED AT THE ENCOUNTER
� Chronic conditions affecting care: Glioblastoma
� Acute Exacerbation and/or Progression of Chronic Illness: This is an acute problem
� Differential Diagnosis includes: Paresthesias related to glioblastoma, shoulder strain, cervical radiculopathy
AMOUNT AND/OR COMPLEXITY OF DATA TO BE REVIEWED AND ANALYZED
� I performed an independent evaluation of and my interpretation is:
EKG:
CT: CAT scan shows large amount of low-attenuation right parietal/temporal/frontal lobes consistent with radiation necrosis/residual GBM, previous right parietal craniotomy noted, there is no acute hemorrhage
X-rays:
Laboratory Studies: CBC normal, chemistries unremarkable
Other:
� Review of other/old records: I reviewed MRI of the brain from this past October which showed postsurgical changes of the frontal parietal glioblastoma resection on the right. The patient had strokelike symptoms in October and
Keppra was started for the possibly of focal seizures.
� Clinical information was obtained by an independent historian: I spoke to family at bedside
� Prescriptions/Medications Considered but not given:
� Further testing considered but not performed:
RISK OF COMPLICATIONS AND/OR MORBIDITY OR MORTALITY OF PATIENT MANAGEMENT
� Social determinants of health affecting care: Lives at home
� Discussion with other providers:
� Escalation of care including admission/observation vs risk of discharge considered: As patient states that his symptoms were successfully treated with Toradol and prednisone in the past, we will resume the same treatment. I
encouraged close follow-up with neurosurgery at [facility] as well.
ANY OTHER UPDATES:
Past History
Past History
ED Past Medical History: Cancer (Glioblastoma brain tumor), HTN, Hypercholesterolemia, NIDDM and Other (CT show a CVA but MRI is negative, Chronic left arm numbness since last May 2023)
ED Past Surgical History: Orthopedic (Left total knee arthroscopy)
Social History
Tobacco: Non-smoker
Alcohol: Occasional
Drug: None
Personal: Single
Living: alone
Family History
Family History: Other (Reviewed and noncontributory)
Phy Exam
Physical Exam
Physical Exam:
HPI
Course
Orders/Labs/Results
Orders:
Orders
12/11/24 19:09
Electrocardiogram (*1) Urgent
Reason for Study: Vertigo / Dizzy
Head wo Contrast CT [CT Head W/o Iv Contrast] Urgent
Comment: history of glioblastoma
Reason For Exam: dizziness and left arm numbness
12/11/24 19:10
EKG- Treatment ONCE
12/11/24 19:32
Complete Blood Count/With Diff Urgent
Comprehensive Metabolic Panel Urgent
12/11/24 21:01
Ketorolac [Toradol] 30 mg IM NOW STA
Prednisone [Deltasone] 50 mg PO NOW STA
12/11/24 19:32
12/11/24 19:32
Vital Signs
Initial and Last Documented VS:
Initial Vital Signs
Temp Pulse Resp BP Pulse Ox
36.8 C 69 18 116/71 99
12/11/24 19:05 12/11/24 19:05 12/11/24 19:05 12/11/24 19:05 12/11/24 19:05
Last Documented Vital Signs
Temp Pulse Resp BP Pulse Ox
36.8 C 69 18 116/71 99
12/11/24 19:05 12/11/24 19:05 12/11/24 19:05 12/11/24 19:05 12/11/24 19:05
*Critical Care Note
Total Time (30-74mins, 75-104mins- exclusive of procedures): Not Applicable
ED Attending Note
-
Portions of this chart may have been created with voice recognition software.� Occasional wrong word or��sound alike� substitutions may have occurred due to the inherent limitations of voice recognition software.
Discharge Plan
Departure
Patient Disposition: Home (Routine Discharge)
Date of Disposition: 12/11/24
Time of Disposition: 21:02
Patient with high blood pressure during this ER visit?: Yes
Discharge Problem:
Left shoulder pain
Instructions: Paresthesia (DC), BLOOD PRESSURE
Prescriptions:
New
prednisone 50 mg tablet
50 mg PO DAILY Qty: 4 0RF
No Action
duloxetine 60 MG capsule,delayed release(DR/EC)
60 mg PO BID
metformin 500 mg Tablet Extended Release 24hr
500 mg PO QPM
quetiapine 50 mg Tablet
50 mg PO HS
Jardiance 25 mg Tablet
25 mg PO DAILY
aspirin 81 mg Tablet,Chewable
81 mg PO DAILY
gabapentin 100 mg Capsule
100 mg PO HS
acetaminophen [Tylenol] 325 mg Tablet
650 mg PO Q6H PRN (Reason: Pain)
lidocaine 4 % Adhesive Patch,Medicated
1 patch topical DAILY Qty: 30 0RF
levetiracetam 250 mg Tablet
750 mg PO BID Qty: 180 0RF
losartan 25 mg Tablet
25 mg PO DAILY Qty: 30 0RF
rosuvastatin 20 mg capsule, sprinkle
20 mg PO DAILY Qty: 30 0RF
prednisone 20 mg tablet
40 mg PO DAILY Qty: 8 0RF
Activity Restrictions/Additional Instructions:
The CAT scan of the brain shows no acute finding. It does show effects of prior treatment of the glioblastoma and the CAT scan today appears unchanged from the CAT scan from 11/27/2024. I am sending a prescription for prednisone to your pharmacy.
We also gave a shot of Toradol tonight. While on prednisone, your blood sugars will be higher.
Interventions
Interventions:
*Risk Screen - Suicide Last Done: 12/11/24 19:05
*General Assessment Last Done: 12/11/24 19:05
*Neglect/Abuse Screening Last Done: 12/11/24 19:05
*ED COVID-19 Vaccine History Last Done: 12/11/24 19:05
Discharge Date and Time
Print Language: URDU
[2024-12-11] MEDS: TORADOL 30 MG IM (21:51)
[2024-12-11] MEDS: DELTASONE 50 MG PO (21:53)
== END 2024-12-11 22:33 | disposition home or self-care (01) ==
LOC: EMR 19:02
PROVIDERS: Physician Assistant; EMERGENCY PHYSICIAN Emergency Medicine; FAMILY PHYSICIAN Nurse Practitioner Family
DX: M25.512 Pain in left shoulder (principal); R47.81 Slurred speech; E11.9 Type 2 diabetes mellitus without complications; E78.00 Pure hypercholesterolemia, unspecified; I10 Essential (primary) hypertension; Z86.73 Personal history of transient ischemic attack (TIA), and cerebral infarction without residual deficits
CPT/HCPCS: 99284; 70450; 80053; 85025; 93005

== ENCOUNTER 2025-03-20 09:08 | Emergency (ER) | payer MEDICARE, OTHER, SELFPAY ==
[2025-03-20 09:14] VITALS: BP 134/86
[2025-03-20 09:55] LABS: Hematocrit 40.4 % (39.0-52.0); Hemoglobin 13.8 g/dL (13.0-18.0); Mean Corp Hgb Conc. 34.2 g/dL (33.0-37.0); Mean Corpuscular Volume 86.9 fL (80.0-94.0); Nucleated Red Blood Cells % 0 % (-); Platelet Count 220 10^3/uL (130-400); Red Cell Dist. Width 13.2 % (11.5-14.5)
[2025-03-20 10:04] LABS: ALT (SGPT) 26 U/L (0-50); AST (SGOT) 21 U/L (17-59); Albumin 4.4 g/dl (3.5-5.0); Alkaline Phosphatase 107 U/L (38-126); Blood Urea Nitrogen 21 mg/dl (9-20); Calcium 8.9 mg/dl (8.4-10.2); Carbon Dioxide 24 mmol/L (22-30); Chloride 107 mmol/L (98-107); Glucose 129 mg/dl (70-99); Potassium 4.2 mmol/L (3.5-5.1); Sodium 139 mmol/L (135-145); Total Protein 7.1 g/dl (6.3-8.2); eGFR > 60.00
--- NOTE | 2025-03-20 10:14 | ED.GENMED ---
History of Present Illness
General
Chief Complaint: Fall
Source: patient
Exam Limitations: none
Time Seen by Provider: 03/20/25 09:54
History of Present Illness
History of Present Illness:
69yoM with a history of a glioblastoma (s/p surgery in 2021, follow with [facility], treated with surveillance, gets MRIs every 2 months, all recent imaging has been neg), type 2 diabetes, and hypertension presenting with his brother for evaluation of rib
pain. Patient had a mechanical fall 5 days ago while getting out of his car. He has baseline L sided weakness due to his glioblastoma. He denies any preceding dizziness. He fell and was able to catch himself with both arms. He is presenting
with worsening L rib pain since yesterday as well as L shoulder pain. He has not been taking anything OTC. He denies any headache, neck pain, abdominal pain.
Past History
Past History
ED Past Medical History: Cancer (Glioblastoma brain tumor), HTN, Hypercholesterolemia, NIDDM and Other (CT show a CVA but MRI is negative, Chronic left arm numbness since last May 2023)
ED Past Surgical History: Orthopedic (Left total knee arthroscopy)
Social History
Tobacco: Non-smoker
Alcohol: Occasional
Drug: None
Personal: Single
Living: alone
Family History
Family History: Other (Reviewed and noncontributory)
Phy Exam
General Physical Exam
General Presentation: well appearing and no apparent distress
General Skin: warm and dry
General Habitus: normal
General Mental: alert
ENT Exam
ENT Exam: normocephalic
Eye Exam
Eye Exam: PERRL and conjunctiva normal
Pulmonary Exam
Pulmonary Exam: lungs clear, no respiratory distress, no rales, no crackles, no rhonchi, no wheezing and other (+L lower lateral rib tenderness. No crepitus or skin changes. Bilateral breath sounds equal.)
Gastrointestinal Exam
Gastrointestinal Exam: non tender, soft and non distended
Neurological Exam
Neurological Exam: alert
Kevin Coma Scale
Eye Opening: Spontaneous
Verbal Response: Oriented
Motor Response: Obeys Commands
GCS Total Score: 15
Musculoskeletal Exam
Musculoskeletal Exam: other (L shoulder: Normal to inspection. ROM decreased 2/2 baseline weakness. No reproducible tenderness.)
Skin Exam
Skin Exam: normal color and warm/dry
Psychiatric Exam
Psychiatric Exam: normal mood/affect
Course
Orders/Labs/Results
Orders:
Orders
03/20/25 09:35
Complete Blood Count/With Diff Urgent
Comprehensive Metabolic Panel Urgent
03/20/25 10:10
Ketorolac [Toradol] 30 mg IM NOW STA
CR Ribs-left 3 Vw W/pa Chest Urgent
Comment:
Reason For Exam: L lower rib pain, fall 5 days ago
CR Shoulder - Left Min 2 View* Urgent
Comment:
Reason For Exam: pain, fall
03/20/25 12:36
Pt Eval And Treat Urgent
Treatment: eval rehab needs
Activity Level: Out of Bed- Ad Sury
03/20/25 13:05
Incentive Spirometry [Rx Incentive Spirometry] [RESP] Urgent
Frequency: q1h while awake
Abnormal Lab Results
03/20/25
09:35
RBC 4.65 L 10^6/uL
(4.70-6.10)
BUN 21 H mg/dl
(9-20)
Glucose 129 H mg/dl
(70-99)
03/20/25 09:35
03/20/25 09:35
Vital Signs
Initial and Last Documented VS:
Initial Vital Signs
Temp Pulse Resp BP Pulse Ox
98.6 F 98 18 134/86 95
03/20/25 09:14 03/20/25 09:14 03/20/25 09:14 03/20/25 09:14 03/20/25 09:14
Last Documented Vital Signs
Temp Pulse Resp BP Pulse Ox
98.6 F 98 18 134/86 95
03/20/25 09:14 03/20/25 09:14 03/20/25 09:14 03/20/25 09:14 03/20/25 10:16
MDM/Problems Addressed
Differential Diagnosis Includes:
69yoM here after a mechanical fall 4 days ago. C/o worsening L rib and shoulder pain. VSS. He is well appearing in no distress. There is reproducible chest wall tenderness on exam without skin changes. Lungs sounds equal. No abdominal tenderness.
Differential diagnosis includes but is not limited to: rib fracture, rib contusion/sprain, doubt pneumothorax
Initial ED plan: Left rib and shoulder x-rays ordered. IM Toradol for pain.
*Pulse Oximetry
SaO2: 95
Oxygen Mode of Delivery: Room air
Patient hypoxic: no (95%)
*Critical Care Note
Total Time (30-74mins, 75-104mins- exclusive of procedures): Not Applicable
Update Note
Update Note:
Imaging shows evidence of a nondisplaced left 10th rib fracture. No evidence of pneumo or hemothorax. Pain significantly improved after receiving Toradol. Family concerned due to some gait instability although this seems to be baseline. Patient
was evaluated by PT who recommended outpatient physical therapy. No indication for hospitalization. Supportive care discussed and patient has an incentive spirometer at home that he can use. Advised follow-up with PCP and he was discharged stable
condition.
ED Attending Note
-
Portions of this chart may have been created with voice recognition software.� Occasional wrong word or��sound alike� substitutions may have occurred due to the inherent limitations of voice recognition software.
Discharge Plan
Departure
Patient Disposition: Home (Routine Discharge)
Date of Disposition: 03/20/25
Time of Disposition: 13:10
Patient with high blood pressure during this ER visit?: No
Discharge Problem:
Left rib fracture
Instructions: Rib fracture or bruised rib - ED discharge instructions
Prescriptions:
No Action
duloxetine 60 MG capsule,delayed release(DR/EC)
60 mg PO BID
metformin 500 mg Tablet Extended Release 24hr
500 mg PO QPM
quetiapine 50 mg Tablet
50 mg PO HS
Jardiance 25 mg Tablet
25 mg PO DAILY
aspirin 81 mg Tablet,Chewable
81 mg PO DAILY
gabapentin 100 mg Capsule
100 mg PO HS
acetaminophen [Tylenol] 325 mg Tablet
650 mg PO Q6H PRN (Reason: Pain)
lidocaine 4 % Adhesive Patch,Medicated
1 patch topical DAILY Qty: 30 0RF
levetiracetam 250 mg Tablet
750 mg PO BID Qty: 180 0RF
losartan 25 mg Tablet
25 mg PO DAILY Qty: 30 0RF
rosuvastatin 20 mg capsule, sprinkle
20 mg PO DAILY Qty: 30 0RF
prednisone 20 mg tablet
40 mg PO DAILY Qty: 8 0RF
prednisone 50 mg tablet
50 mg PO DAILY Qty: 4 0RF
modafinil 100 mg Tablet
100 mg PO DAILY
Referrals:
Russ Christensen CRNP [Family Provider, Family Practice]
Activity Restrictions/Additional Instructions:
Take Tylenol and ibuprofen for pain. Use lidocaine patches daily (12 hours on, 12 hours off). Use incentive spirometer every hour while awake.
Please follow-up with your family doctor. Return to the ER with any new or worsening symptoms.
Interventions
Interventions:
*Risk Screen - Suicide Last Done: 03/20/25 09:18
*General Assessment Last Done: 03/20/25 09:18
*Neglect/Abuse Screening Last Done: 03/20/25 09:18
*ED COVID-19 Vaccine History Last Done: 03/20/25 09:18
Discharge Date and Time
Print Language: ARMENIAN
[2025-03-20] MEDS: TORADOL 30 MG IM (10:16)
[2025-03-20 14:01] VITALS: BP 138/77
== END 2025-03-20 14:02 | disposition home or self-care (01) ==
LOC: EMR 09:08
PROVIDERS: EMERGENCY PHYSICIAN Emergency Medicine; FAMILY PHYSICIAN Nurse Practitioner Family
DX: S22.32XA Fracture of one rib, left side, initial encounter for closed fracture (principal); E11.9 Type 2 diabetes mellitus without complications; I10 Essential (primary) hypertension; E78.00 Pure hypercholesterolemia, unspecified; R53.1 Weakness; Z79.82 Long term (current) use of aspirin; Z79.84 Long term (current) use of oral hypoglycemic drugs; Z85.841 Personal history of malignant neoplasm of brain; W18.39XA Other fall on same level, initial encounter
CPT/HCPCS: 99284; 96372; 71101; 73030; 80053; 85025